=== PATIENT | male | born 1945 | race Caucasian/White ===

== ENCOUNTER 2020-02-24 09:10 | Outpatient (CLI) | payer MEDICARE, SELFPAY ==
[2020-02-24 09:30] LABS: Hemoglobin A1C 6.1 % (<5.7)
[2020-02-24 10:17] LABS: Alanine Aminotransferase 37 U/L (16-63); Alkaline Phosphatase 78 U/L (46-116); Anion Gap 8 mmol/L (8-16); Aspartate Amino Transferase 23 U/L (15-37); Bilirubin,Total 0.4 mg/dL (0.00-1.00); Blood Urea Nitrogen 23 mg/dL (7-18); Calcium 8.6 mg/dL (8.5-10.1); Carbon Dioxide 28 mmol/L (21-32); Chloride 103 mmol/L (98-108); Estimated Glomerular Filt Rate 46; Glucose 169 mg/dL (70-99); Osmolality Calculated 295 mOsm/kg (285-295); Potassium 4.2 mmol/L (3.5-5.1); Sodium 139 mmol/L (136-145)
[2020-02-24 10:22] LABS: Creatinine Urine 48.19 mg/dL (40-278); MALB Creatinine Ratio 27.8 mg/g (0-30); Microalbumin Urine Random 13.4 mg/L
== END 2020-02-24 09:11 | disposition home or self-care (01) ==
LOC: CHSLAB 09:12
PROVIDERS: PCP Family Medicine; Visit Provider Family Medicine
DX: E11.9 Type 2 diabetes mellitus without complications (principal)
CPT/HCPCS: 36415; 80053; 82043; 83036

== ENCOUNTER 2020-07-26 09:08 | Outpatient (CLI) | payer MEDICARE, SELFPAY ==
--- NOTE | ~2020-07-26 | XR_ITS ---
XR foot RT min 3V DATE: 07/26/2020 09:39 INDICATION: Right foot pain medially for 2 months. Diabetes. TECHNIQUE: 4 views COMPARISON: None FINDINGS: Prominent plantar and mild posterior calcaneal enthesopathy. There are severe neuropathic changes at the hindfoot including talonavicular, calcaneal cuboidal, tar jah and to a lesser extent tarsometatarsal joints. IMPRESSION: Severe neuropathic changes involving particularly the hindfoot Reviewed, dictated and finalized at location A. T ENGINEERING MANAGER
== END 2020-07-26 09:09 | disposition home or self-care (01) ==
PROVIDERS: PCP Family Medicine; Visit Provider Orthopaedic Surgery
DX: M79.671 Pain in right foot (principal)
CPT/HCPCS: 73630

== ENCOUNTER 2020-08-19 07:40 | Outpatient (CLI) | payer MEDICARE, SELFPAY ==
--- NOTE | ~2020-08-19 | CT_ITS ---
EXAMINATION: CT lung screening DATE: 08/19/2020 08:16 INDICATION: Z87.891 - Personal history of nicotine dependence hx tobacco dependence, no chest complai nts, hx emphysema TECHNIQUE: Computed tomography (CT) of the chest was performed without intravenous contrast. Addition al 3D reconstructions utilizing coronal maximum intensity projection (MIP) were performed. Automated exposure control and iterative reconstruction technique were employed. The dose-length product was 23 5.08 mGy-cm. COMPARISON: None FINDINGS: There are several small calcified nodules scattered throughout both lungs with lower lung predominanc e consistent with old granulomatous disease. No suspicious noncalcified pulmonary nodules, pneumonia or pleural effusion. Mild discoid atelectasis along with mild smooth septal line thickening consisten t with minimal pulmonary edema at the lung bases. Heart size is normal. Atherosclerotic coronary yana ry calcifications. No pericardial effusion. Aortic valve and mitral annular calcification. No patholo gically enlarged thoracic lymphadenopathy. No significant change in a 2.2 cm right adrenal mass which given the interval stability would be most consistent with an adenoma. Also unchanged is a 12 mm low -attenuation left adrenal adenoma. Chronic mild anterior wedging of a few mid and lower thoracic vert ebral bodies. Moderate thoracic and lower cervical spondylosis. IMPRESSION: 1. Lung-RADS category 1: Negative. Continue annual screening with noncontrast low-dose chest CT in 12 months. 2. Minimal pulmonary edema at the lung bases. Reviewed, dictated and finalized at location A. R OPERATOR TANKER TRUCK DRIVER IMPRESSION: 1. Lung-RADS category 1: Negative. Continue annual screening with noncontrast l ow-dose chest CT in 12 months. 2. Minimal pulmonary edema at the lung bases.
--- NOTE | ~2020-08-19 | US_ITS ---
EXAMINATION: US renal BI EXAM DATE: 08/19/2020 08:29 INDICATION: R10.9 - Unspecified abdominal pain TECHNIQUE: Multiple grayscale and Doppler images of the kidneys were obtained (by a technologist who performed the scan) and subsequently reviewed. There is no prior study for comparison. FINDINGS: Bilateral renal cortical thinning. Right kidney: There is normal contour and echogenicity. It measures 10.6 x 5.8 x 7.6 centimeters. T here are no focal renal lesions identified. There is no hydronephrosis. Left kidney: There is normal contour and echogenicity. It measures 9.7 x 5.6 x 6.8 centimeters. Ther e is a 6 mm renal cyst. There is no hydronephrosis. Bladder unremarkable. IMPRESSION: 1. Bilateral renal cortical thinning. 2. No hydronephrosis. Reviewed, dictated and finalized at location B. Y CHILDHOOD EDUCATION WORKER
[2020-08-19 08:10] LABS: Anion Gap 8 mmol/L (8-16); Blood Urea Nitrogen 25 mg/dL (7-18); Calcium 8.9 mg/dL (8.5-10.1); Carbon Dioxide 28 mmol/L (21-32); Chloride 102 mmol/L (98-108); Estimated Glomerular Filt Rate 57; Glucose 146 mg/dL (70-99); Osmolality Calculated 293 mOsm/kg (285-295); Sodium 138 mmol/L (136-145)
[2020-08-19 08:16] LABS: Hemoglobin A1C 6.3 % (<5.7)
== END 2020-08-19 07:41 | disposition home or self-care (01) ==
LOC: CHSIMG 07:43
PROVIDERS: PCP Family Medicine; Visit Provider Family Medicine
DX: Z12.2 Encounter for screening for malignant neoplasm of respiratory organs (principal); Z87.891 Personal history of nicotine dependence; E11.9 Type 2 diabetes mellitus without complications; R10.9 Unspecified abdominal pain; I12.9 Hypertensive chronic kidney disease with stage 1 through stage 4 chronic kidney disease, or unspecified chronic kidney disease; E78.5 Hyperlipidemia, unspecified; N18.9 Chronic kidney disease, unspecified; I25.10 Atherosclerotic heart disease of native coronary artery without angina pectoris; I48.91 Unspecified atrial fibrillation
CPT/HCPCS: 36415; 71271; 76775; 80048; 83036

== ENCOUNTER 2021-03-25 11:54 | Outpatient (CLI) | payer MEDICARE, SELFPAY ==
[2021-03-25 12:09] LABS: Basophils Absolute Auto 0.05 K/mm3 (0.00-0.10); Basophils Percent Auto 0.3 % (0.0-1.0); Eosinophils Absolute Auto 0.14 K/mm3 (0.02-0.50); Hematocrit 44.9 % (37.0-46.0); Hemoglobin 15.1 g/dL (12.4-15.3); Immature Granulocyte Absolute 0.06 K/mm3 (0.00-0.00); Immature Granulocyte Percent A 0.4 % (0.0-0.0); Lymphocytes Absolute Auto 5.56 K/mm3 (1.10-4.50); Lymphocytes Percent Auto 37.9 % (18.0-42.0); Mean Corpuscular HGB Conc 33.6 g/dL (32.0-36.0); Mean Corpuscular Hemoglobin 29.2 pg (27.0-31.0); Mean Corpuscular Volume 86.8 fL (78.0-102.0); Mean Platelet Volume 10.6 fl (8.7-11.0); Monocytes Absolute Auto 0.84 K/mm3 (0.10-0.90); Monocytes Percent Auto 5.7 % (2.0-11.0); Neutrophils Percent Auto 54.7 % (50.0-70.0); Platelet Count Result 162 K/mm3 (150-420); Red Blood Count 5.17 M/mm3 (4.70-6.10); Red Cell Distribution Width 14.7 % (11.6-14.4); White Blood Count 14.7 K/mm3 (4.8-10.8)
[2021-03-25 12:38] LABS: Hemoglobin A1C 6.2 % (<5.7)
[2021-03-25 12:50] LABS: Alanine Aminotransferase 49 U/L (16-63); Albumin Level 3.8 g/dL (3.4-5.0); Alkaline Phosphatase 70 U/L (46-116); Anion Gap 9 mmol/L (8-16); Aspartate Amino Transferase 24 U/L (15-37); Bilirubin,Total 0.3 mg/dL (0.00-1.00); Blood Urea Nitrogen 26 mg/dL (7-18); Calcium 8.9 mg/dL (8.5-10.1); Carbon Dioxide 29 mmol/L (21-32); Chloride 106 mmol/L (98-108); Cholesterol 138 mg/dL (0-200); Estimated Glomerular Filt Rate > 60; Glucose 80 mg/dL (70-99); HDL Direct 32 mg/dL (40-60); LDL Cholesterol Calculated 44 mg/dL (<130); Osmolality Calculated 301 mOsm/kg (285-295); Potassium 4.3 mmol/L (3.5-5.1); Sodium 144 mmol/L (136-145); Total Protein 6.6 g/dL (6.4-8.2); Triglycerides 311 mg/dL (0-150)
== END 2021-03-25 11:55 | disposition home or self-care (01) ==
PROVIDERS: PCP Family Medicine; Visit Provider Family Medicine
DX: I48.91 Unspecified atrial fibrillation (principal); E11.9 Type 2 diabetes mellitus without complications
CPT/HCPCS: 36415; 80053; 80061; 83036; 85025

== ENCOUNTER 2021-04-26 14:18 | Outpatient (CLI) | payer MEDICARE, SELFPAY ==
--- NOTE | ~2021-04-26 | XR_ITS ---
XR chest 2V DATE: 04/26/2021 14:48 INDICATION: Cough and shortness of breath TECHNIQUE: 2 views COMPARISON: August 22, 2018 two-view chest August 19, 2020 CT lung screening FINDINGS: Bilateral moderate hyperinflation. Normal heart size. No pulmonary infiltrate or consolidation, pleural effusion or pneumothorax. IMPRESSION: Bilateral moderate hyperinflation; no active cardiopulmonary disease Reviewed, dictated and finalized at location A. IMPRESSION: Bilateral moderate hyperinflation; no active cardiopulmonary diseas e
[2021-04-26 14:32] LABS: Mean Corpuscular HGB Conc 33.3 g/dL (32.0-36.0); Mean Corpuscular Hemoglobin 28.9 pg (27.0-31.0); Mean Corpuscular Volume 86.7 fL (78.0-102.0); Mean Platelet Volume 11.1 fl (8.7-11.0); Platelet Count Result 164 K/mm3 (150-420); Red Blood Count 5.19 M/mm3 (4.70-6.10); Red Cell Distribution Width 14.9 % (11.6-14.4); White Blood Count 17.5 K/mm3 (4.8-10.8)
[2021-04-26 15:36] LABS: Alanine Aminotransferase 47 U/L (16-63); Albumin Level 3.9 g/dL (3.4-5.0); Alkaline Phosphatase 78 U/L (46-116); Anion Gap 11 mmol/L (8-16); Aspartate Amino Transferase 19 U/L (15-37); Bilirubin,Total 1.1 mg/dL (0.00-1.00); Blood Urea Nitrogen 17 mg/dL (7-18); Calcium 8.7 mg/dL (8.5-10.1); Carbon Dioxide 30 mmol/L (21-32); Chloride 101 mmol/L (98-108); Estimated Glomerular Filt Rate 55; Glucose 74 mg/dL (70-99); NT Pro B Type Natriuretic Pept 895 pg/mL (0-450); Osmolality Calculated 294 mOsm/kg (285-295); Potassium 4.1 mmol/L (3.5-5.1); Sodium 142 mmol/L (136-145)
== END 2021-04-26 14:19 | disposition home or self-care (01) ==
PROVIDERS: PCP Family Medicine; Visit Provider Family Medicine
DX: I48.91 Unspecified atrial fibrillation (principal); R06.02 Shortness of breath
CPT/HCPCS: 36415; 71046; 80053; 83880; 85027

== ENCOUNTER 2021-06-08 13:51 | Outpatient (CLI) | payer MEDICARE, SELFPAY ==
--- NOTE | ~2021-06-08 | XR_ITS ---
EXAMINATION: XR finger 3rd RT min 2V DATE: 06/08/2021 14:15 INDICATION: Right hand third digit swelling. TECHNIQUE: 4 views of right hand third digit were obtained. COMPARISON: Right hand radiograph 02/13/2017 FINDINGS: There is flexion of fifth distal interphalangeal joint. No fracture. There is moderate oste oarthritis of third metacarpophalangeal joint and proximal interphalangeal joint and mild osteoarthri tis of distal interphalangeal joint. There is soft tissue swelling of the third digit. IMPRESSION: 1. Polyarticular osteoarthritis. Reviewed, dictated and finalized at location A. TAL STRATEGY SPECIALIST
--- NOTE | 2021-06-08 13:54 | ECG_ITS ---
Measurements Intervals Brady Rate: 150 P: -86 ID: 106 QRS: -55 QRSD: 119 T: 113 QT: 293 QTc: 463 Interpretive Statements ATRIAL FLUTTER/TACHYCARDIA WITH RAPID VENTRICULAR RESPONSE LEFT ANTERIOR FASCICULAR BLOCK ANTEROLATERAL INFARCT, AGE INDETERMINATE HIGH LATERAL INFARCT, AGE INDETERMINATE BASELINE WANDER- V3-V4, V6 ABNORMAL ECG Electronically Signed On 06-08-2021 14:07:31 AIRFRAME AND POWERPLANT TECHNICIAN by Sharan Jacinto D.O.
== END 2021-06-08 13:52 | disposition home or self-care (01) ==
LOC: CHSCARD 13:54
PROVIDERS: PCP Family Medicine; Visit Provider Family Medicine
DX: I48.91 Unspecified atrial fibrillation (principal); M79.89 Other specified soft tissue disorders
CPT/HCPCS: 73140; 93005

== ENCOUNTER 2021-06-08 15:07 | Emergency (ER) | payer MEDICARE, SELFPAY ==
[2021-06-08] VITALS (11 sets, daily range): BP systolic 93–151; BP diastolic 78–107; PULSE 132–154; RESP 20; TEMP 36.5–36.9; O2SAT 94
--- NOTE | ~2021-06-08 | XR_ITS ---
XR chest 1V portable 06/08/2021 16:15 Indication: Cough. History of COPD. Procedure: AP portable chest Comparison: Comparison to multiple prior studies sequentially, with oldest reviewed study dated 08/2015. Findings: Borderline heart size. Subtle bilateral airspace disease of the mid and lower lungs, suspic ious for pneumonia versus edema. No significant effusion or pneumothorax. Impression: 1: Subtle bilateral airspace disease of the mid and lower lungs which may represent pneumonia or renea a. Reviewed, dictated and finalized at location A. EXTINGUISHER TECHNICIAN Impression: 1: Subtle bilateral airspace disease of the mid and lower lungs which may repre sent pneumonia or edema.
[2021-06-08] MEDS: dilTIAZem HCl INJ 25 MG/5 ML VIAL (15:25)
--- NOTE | 2021-06-08 15:55 | PC.NURSE ---
[id number] CALL PUT OUT FOR ATTENDANT COIN OPERATED LAUNDRY DR NOE
[2021-06-08] MEDS: ADENOSINE IV SOLN 6 MG/2 ML VIAL (16:29)
[2021-06-08 16:35] LABS: Basophils Absolute Auto 0.05 K/mm3 (0.00-0.10); Basophils Percent Auto 0.3 % (0.0-1.0); Eosinophils Absolute Auto 0.09 K/mm3 (0.02-0.50); Eosinophils Percent Auto 0.6 % (1.0-6.0); Hematocrit 44.1 % (37.0-46.0); Immature Granulocyte Absolute 0.07 K/mm3 (0.00-0.00); Immature Granulocyte Percent A 0.5 % (0.0-0.0); Lymphocytes Absolute Auto 5.28 K/mm3 (1.10-4.50); Lymphocytes Percent Auto 36.7 % (18.0-42.0); Mean Corpuscular Hemoglobin 28.7 pg (27.0-31.0); Mean Corpuscular Volume 84.5 fL (78.0-102.0); Mean Platelet Volume 10.7 fl (8.7-11.0); Monocytes Absolute Auto 0.71 K/mm3 (0.10-0.90); Monocytes Percent Auto 4.9 % (2.0-11.0); Neutrophils Absolute Auto 8.2 K/mm3 (1.7-7.2); Platelet Count Result 171 K/mm3 (150-420); Red Blood Count 5.22 M/mm3 (4.70-6.10); Red Cell Distribution Width 14.4 % (11.6-14.4); White Blood Count 14.4 K/mm3 (4.8-10.8)
[2021-06-08 16:44] LABS: Potassium 3.5 mmol/L (3.5-5.1)
[2021-06-08 16:47] LABS: INR 1.1; Prothrombin Time 11.4 Seconds (9.50-12.10)
[2021-06-08 16:49] LABS: D Dimer 0.43 mg/L (0.19-0.50)
[2021-06-08] MEDS: ESMOLOL HCL 2,500 MG/250 ML 2,500 MG/250 ML BAG 27.75 MG IV CONT (16:58)
[2021-06-08 17:02] LABS: Alanine Aminotransferase 34 U/L (16-63); Albumin Level 3.8 g/dL (3.4-5.0); Alkaline Phosphatase 74 U/L (46-116); Anion Gap 11 mmol/L (8-16); Aspartate Amino Transferase 22 U/L (15-37); Bilirubin,Total 0.6 mg/dL (0.00-1.00); Blood Urea Nitrogen 20 mg/dL (7-18); Calcium 8.7 mg/dL (8.5-10.1); Carbon Dioxide 27 mmol/L (21-32); Chloride 102 mmol/L (98-108); Estimated CRCL calculation 45 ml/min; Estimated Glomerular Filt Rate 55; Glucose 115 mg/dL (70-99); Osmolality Calculated 293 mOsm/kg (285-295); Sodium 140 mmol/L (136-145); Total Protein 7.5 g/dL (6.4-8.2)
--- NOTE | 2021-06-08 17:03 | PC.NURSE ---
Lab called with Troponin of 284.4. Dr. Pepe notified.
--- NOTE | 2021-06-08 17:04 | PC.NURSE ---
Dr. Pepe spoke with [facility]'s popped corn oven attendant.
--- NOTE | 2021-06-08 17:07 | PC.NURSE ---
Spoke to Isabella at [facility] and they do not have any tele beds. States they will call us in the morning.
--- NOTE | 2021-06-08 17:11 | PC.NURSE ---
[facility] contacted for transfer by Dr. Pepe and they do not have any beds at this time.
--- NOTE | 2021-06-08 17:12 | PC.NURSE ---
[facility] contacted for transfer and they do not have any beds. Pt will be waitlisted.
[2021-06-08 17:14] LABS: Thyroid Stimulating Hormone 1.82 uIU/mL (0.36-3.74); Troponin I 284.4 ng/L (0.00-60.4)
--- NOTE | 2021-06-08 17:22 | ED.GENADULT ---
HPI - General Adult General Chief complaint: Unspecified Stated complaint: sent by MideoMeing to lower heart rate Source: patient Mode of arrival: ambulatory Limitations: no limitations History of Present Illness HPI narrative: Went to doc for mild cough and URI sxs. Was noted to have a rapid heart rate. Pt states that he had no idea that he was having rapid heart rate. He was not dizzy, not SOB, no pain at all. He had hx of this in the past, and had to be cardioverted several times. Pain Consistency: constant Relieving factors: none Exacerbating factors: none Associated symptoms: denies other symptoms Related Data Home Medications Medication Instructions Recorded Confirmed ipratropium 0.5 mg-albuterol 3 mg 3 ml INHALATION QID PRN 10/22/19 06/08/21 (2.5 mg base)/3 mL nebulization soln rivaroxaban 20 mg tablet 20 mg PO DAILY 10/22/19 06/08/21 umeclidinium 62.5 mcg/actuation 1 inhalation INHALATION DAILY 10/22/19 06/08/21 blister powder for inhalation hydralazine 50 mg tablet 100 mg PO BID tablet 08/18/20 06/08/21 lisinopril 40 mg tablet 40 mg PO DAILY 08/19/20 06/08/21 Allergies Allergy/AdvReac Type Severity Reaction Status Date / Time apixaban [From Eliquis] Allergy Intermediate Hives Verified 06/08/21 15:42 Review of Systems Constitutional: Constitutional: Reports as per HPI and Reports no additional constitutional complaints Eyes: Eyes: Reports no additional eye complaints ENT: Reports system reviewed and no additional complaints, except as documented Cardiovascular: Cardiovascular: Reports no additional cardiovascular complaints Comments: pt has no sxs Respiratory: Respiratory: Reports cough Comments: covid and influenza negative today Gastrointestinal: Gastrointestinal: Reports no additional gastrointestinal complaints Musculoskeletal: Musculoskeletal: Reports no additional musculoskeletal complaints Neurologic: Reports system reviewed and no additional complaints, except as documented Psychiatric: Psychiatric: Reports no additional psychiatric complaints Endocrine: Endocrine: Reports no additional endocrine complaints Hematologic/Lymphatic: Hematologic/Lymphatic: Reports no additional hematologic/lymphatic complaints Allergic/Immunologic: Allergic/Immunologic: Reports no additional allergic/immunologic complaints PMFSH Past Medical History Medical History Atrial fibrillation CAD (coronary artery disease) Charcot foot due to diabetes mellitus CKD (chronic kidney disease) Claustrophobia COPD (chronic obstructive pulmonary disease) DM2 (diabetes mellitus, type 2) History of adverse effect of anesthesia Hyperlipidemia Hypertension Left ventricular failure CONNER (obstructive sleep apnea) Overweight Peripheral neuropathy Wears glasses Surgical History Surgical History History of cardiac radiofrequency ablation History of coronary artery stent placement x3 History of umbilical hernia repair Hx of cataract surgery right eye Family History Family History Father CHF (congestive heart failure) CAD (coronary artery disease) Hypertension PVD (peripheral vascular disease) Cerebrovascular accident Mother Hypertension Hepatic carcinoma Daughter Hypertension Rheumatoid arthritis Brother COPD (chronic obstructive pulmonary disease) Alcoholism Other Heart disease Social History Social History Smoking packs per day: 2 Smoking cigarettes per day: 40.0 Smoking status: Former smoker Tobacco type: cigarettes Second hand tobacco smoke exposure: No Smoking end date: 06/25/98 Additional smoking assessment comments: 90 pack-year history Alcohol intake: former Substance use: never Substance use type: does no
--- NOTE | 2021-06-08 17:24 | PC.NURSE ---
Spoke to [facility] in [place] and they do not have any beds available.
--- NOTE | 2021-06-08 17:28 | PC.NURSE ---
[facility] called back from [facility] and they do not have any beds at this time. Dr. Hsu process automation engineer for cardiology. Will page to for Dr. Pepe to consult with.
--- NOTE | 2021-06-08 17:35 | PC.NURSE ---
Dr. Rm paged.
[2021-06-08] MEDS: AMIODARONE 150 MG/D5W 100 ML 150 MG/100 ML BAG 600 MG IV CONT (18:25)
[2021-06-08] MEDS: AMIODARONE 360 MG/D5W 200 ML 360 MG/200 ML BAG 33.33 MG (19:06)
--- NOTE | 2021-06-08 19:11 | PC.NURSE ---
[facility] did not have any beds available. Waitlisted.
--- NOTE | 2021-06-08 19:21 | PC.NURSE ---
Pat to Harshad at [facility] who will consult cardiology and try to find placement for patient.
[2021-06-08] MEDS: ACETAMINOPHEN 500 MG TABLET 1000 MG PO (20:07)
--- NOTE | 2021-06-08 20:22 | PC.NURSE ---
[facility], [place] [phone], Contacted for pt transfer, they do not have any available beds at this time.
--- NOTE | 2021-06-09 01:00 | PC.NURSE ---
pt being transferred to [facility]. report called MASSIEL Hirsch, accepting MD Cabrera.
[2021-06-09 01:35] VITALS: BP 122/92; PULSE 148; RESP 20; O2SAT 93
== END 2021-06-09 02:17 | disposition short-term general hospital (02) ==
PROVIDERS: Emergency Provider Emergency Medicine; PCP Family Medicine
DX: I48.92 Unspecified atrial flutter (principal); I25.10 Atherosclerotic heart disease of native coronary artery without angina pectoris; J44.9 Chronic obstructive pulmonary disease, unspecified; E11.9 Type 2 diabetes mellitus without complications; E78.5 Hyperlipidemia, unspecified; I10 Essential (primary) hypertension; Z87.891 Personal history of nicotine dependence
CPT/HCPCS: 36415; 71045; 73140; 80053; 83735; 84443; 84484; 85025; 85380; 85610; 93005; 96365; 96366; 96367; 96375; 99285; J0153; J0282

== ENCOUNTER 2021-08-31 09:57 | Outpatient (CLI) | payer MEDICARE, SELFPAY ==
--- NOTE | 2021-08-31 11:00 | NEURO_ITS ---
Impression: # Complains of pain and numbness of hands. # Bilateral Carpal Tunnel Syndrome, left more than right. # Right ulnar neuropathy around the elbow. # Needle/EMG exam neurogenic. Nerve Conduction Studies Anti Sensory Summary Table Stim Site NR Peak (ms) P-T Amp (?V) Site1 Site2 Delta-P (ms) Dist (cm) Francisco (m/s) Left Median Anti Sensory (2-3nd Digit) NO RESPONSE Wrist 7.6 24.7 Wrist 2-3nd Digit 7.6 14.0 18 Wrist NR Wrist 2-3nd Digit 7.6 14.0 18 Right Median Anti Sensory (2-3nd Digit) NO RESPONSE Wrist 3.7 22.2 Wrist 2-3nd Digit 3.7 14.0 38 Wrist NR Wrist 2-3nd Digit 3.7 14.0 38 Left Radial Anti Sensory Run #2 (Base 1st Digit) Wrist 2.9 1373.6 Wrist Base 1st Digit 2.9 0.0 Right Radial Anti Sensory (Base 1st Digit) Wrist 2.5 33.7 Wrist Base 1st Digit 2.5 0.0 Left Ulnar Anti Sensory (5th Digit) Right Ulnar Anti Sensory (5th Digit) NO RESPONSE Wrist NR Wrist 5th Digit 14.0 Motor Summary Table Stim Site NR Onset (ms) O-P Amp (mV) Site1 Site2 Delta-0 (ms) Dist (cm) Francisco (m/s) Left Median Motor (Abd Poll Brev) Wrist 5.4 1.7 Elbow Wrist 5.5 29.0 53 Elbow 10.9 2.0 Right Median Motor (Abd Poll Brev) Wrist 4.5 1.8 Elbow Wrist 6.0 31.0 52 Elbow 10.5 2.1 Left Ulnar Motor (Abd Dig Minimi) Wrist 3.4 4.5 A Elbow Wrist 6.8 33.0 49 A Elbow 10.2 1.9 Right Ulnar Motor (Abd Dig Minimi) Wrist 3.3 5.1 A Elbow Wrist 6.9 30.0 43 A Elbow 10.2 2.0 B Elbow Wrist 5.7 22.0 39 B Elbow 9.0 1.3 F Wave Studies NR F-Lat (ms) L-R F-Lat (ms) Left Median (Mrkrs) (Abd Poll Brev) 29.74 2.55 Right Median (Mrkrs) (Abd Poll Brev) 27.19 2.55 Left Ulnar (Mrkrs) (Abd Dig Min) 28.18 2.10 Right Ulnar (Mrkrs) (Abd Dig Min) 26.08 2.10 EMG Side Muscle Nerve Root Ins Act Fibs Amp Dur Recrt Comment Right 1stDorInt Ulnar C8-T1 Nml Nml Nml >12ms Reduced Right Ext Indicis Radial (Post Int) C7-8 Nml Nml Nml Nml Nml Right Ext Digitorum Radial (Post Int) C7-8 Nml Nml Nml Nml Nml Right BrachioRad Radial C5-6 Nml Nml Nml Nml Nml Right PronatorTeres Median C6-7 Nml Nml Nml Nml Nml Right Abd Poll Brev Median C8-T1 Nml Nml Nml >12ms Reduced Left 1stDorInt Ulnar C8-T1 Nml Nml Nml Nml Nml Left Ext Indicis Radial (Post Int) C7-8 Nml Nml Nml Nml Nml Left Ext Digitorum Radial (Post Int) C7-8 Nml Nml Nml Nml Nml Left BrachioRad Radial C5-6 Nml Nml Nml Nml Nml Left PronatorTeres Median C6-7 Nml Nml Nml Nml Nml Left Abd Poll Brev Median C8-T1 Nml Nml Nml >12ms Reduced MTDD
== END 2021-08-31 09:58 | disposition home or self-care (01) ==
LOC: ANHNEURO 09:59
PROVIDERS: PCP Family Medicine; Visit Provider Plastic Surgery
DX: R20.0 Anesthesia of skin (principal); R53.1 Weakness; G56.03 Carpal tunnel syndrome, bilateral upper limbs; G56.21 Lesion of ulnar nerve, right upper limb
CPT/HCPCS: 95886; 95911

== ENCOUNTER 2021-09-23 08:27 | Outpatient (CLI) | payer MEDICARE, SELFPAY ==
[2021-09-23 08:56] LABS: Anion Gap 9 mmol/L (8-16); Blood Urea Nitrogen 19 mg/dL (9-20); Calcium 8.8 mg/dL (8.4-10.2); Carbon Dioxide 28 mmol/L (22-30); Chloride 101 mmol/L (98-107); Estimated Glomerular Filt Rate > 60; Glucose 222 mg/dL (65-110); Potassium 3.8 mmol/L (3.4-5.0); Sodium 138 mmol/L (137-145)
== END 2021-09-23 08:28 | disposition home or self-care (01) ==
LOC: ANHSURGERY 08:31
PROVIDERS: Anesthesiology; PCP Family Medicine; Visit Provider Plastic Surgery
DX: Z01.812 Encounter for preprocedural laboratory examination (principal); E11.9 Type 2 diabetes mellitus without complications
CPT/HCPCS: 36415; 80048

== ENCOUNTER 2021-09-29 01:13 | Day surgery (SDC) | payer MEDICARE, SELFPAY ==
--- NOTE | 2021-09-19 11:34 | PC.NURSE ---
Report to the Outpatient Waiting Room, entrance under the green pavilion located off [facility], at time _0600 on date _09/29/21 . OR Time: 729 . - You and your visitor will be asked a series of questions to screen for COVID 19 for your protection. - A mask is required within the hospital. Preoperative COVID Testing Requirements: No COVID Test needed if: (proof is required; if not received patient will have Rapid Test prior to entry) - Patient has received COVID Vaccine at least 14 days prior to procedure date or - Patient has positive COVID test result within last 90 days of surgery date. COVID Test needed if above criteria is not met If not COVID vaccinated a COVID test must be conducted within 72 hours of surgery and patient is asked to isolate self from time of testing until procedure. You will go to the [facility] for your COVID testing. The [facility] [facility] is located at the corner of [address] [facility]. You will only be called if COVID results are positive and your surgeon may reschedule your elective surgery date. Patients may have clear liquids (water, carbonated beverages, clear teas, apple juice) until 3 hours prior to surgery with a maximum of 20 ounces. - No food from midnight until time of surgery - Infants may have breast milk until 4 hours before surgery, formula 6 hours prior to surgery. - Children will be allowed to drink immediately following surgery. If applicable, please bring a bottle or sippy cup to assist with drinking. Juice, water, soda, and popsicles are readily available. For infants on formula, please bring formula the day of surgery. Pacifiers are allowed. Take the following medications with a SIP of water the morning of surgery: __NEBULIZER AND _INCRUSE ELLIPTA INHALER Medications to discontinue per physician ___OK TO CONTINUE XARELTO JUST DO NOT TAKE MORNING OF SURGERY Date to take last dose Please no make-up, nail arabic, hairspray, perfume, deodorant, or body powder the day of surgery. No jewelry (including any body piercings) or valuables the day of surgery, leave them at home. Please take a shower or bath the night before, or the morning of, surgery with an antibacterial soap. Wear comfortable, loose fitting clothing. Children are encouraged to wear pajamas. - Jewelry must be removed prior to entering the operating room. Rings and piercings that are not removed may be cut off. - The hospital will not accept responsibility for valuables. - Please leave all valuables, including medications, at home the day of surgery. If you are going home after surgery, a licensed miniature train driver must drive you home. - NO public transportation without another adult. - We recommend that an adult stay with you for 24 hours following discharge. - We also recommend that you do not drive, make important decision, drink alcoholic beverages, or take any drugs that were not prescribed by your health care provider for at least 24 hours after your discharge time. For Pediatric surgeries, we recommend two adults accompany the child home (only one inside the building at this time). One visitor will be allowed to accompany the patient into the hospital. Patients visitor will be instructed to remain with patient at all times or leave the building. We will allow the visitor to come back to the postoperative area when patient is ready. Follow any additional instructions given to you from your surgeon. Telephone instructions given to _PATIENT AND JULIAN and asked if any additional questions and then verbalized understanding. Patient advised to call surgeon office or pre surgery nurse liaison [phone] if any additional questions.
[2021-09-19 11:38] VITALS: BMI 29.4
[2021-09-29] MEDS: LACTATED RINGERS 1,000 ML 30 ML IV CONT (06:28)
[2021-09-29 06:33] LABS: Glucose Point of Care 134 mg/dl (65-105)
--- NOTE | 2021-09-29 06:39 | WPDANESEPPF ---
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 Patient Data Age: 76 Gender: M Height: 1.78 m Weight: 92.99 kg Allergies Allergy/AdvReac Type Severity Reaction Status Date / Time apixaban [From Eliquis] Allergy Intermediate Hives Verified 09/29/21 06:43 metoprolol AdvReac Hives Verified 09/29/21 06:43 Home Medications Medication Instructions Recorded Confirmed Type ipratropium 0.5 mg-albuterol 3 mg 3 ml INHALATION QID PRN 10/22/19 09/29/21 History (2.5 mg base)/3 mL nebulization soln rivaroxaban 20 mg tablet 20 mg PO DAILY 10/22/19 09/29/21 History umeclidinium 62.5 mcg/actuation 1 inhalation INHALATION DAILY 10/22/19 09/29/21 History blister powder for inhalation hydralazine 50 mg tablet 100 mg PO BID tablet 08/18/20 09/29/21 History lisinopril 40 mg tablet 40 mg PO DAILY 08/19/20 09/29/21 History metformin 500 mg tablet See Rx Instructions .ROUTE 10/25/20 09/29/21 Rx .COMPLEX #180 tablet pravastatin 20 mg tablet See Rx Instructions .ROUTE 06/13/21 09/29/21 Rx .COMPLEX #90 tablet furosemide 40 mg tablet See Rx Instructions .ROUTE 07/25/21 09/29/21 Rx .COMPLEX #180 tablet pregabalin [Lyrica] 75 mg PO QPM 09/19/21 09/29/21 History Laboratory Tests 09/29/21 06:28 POC Capillary Glucose 134 mg/dl H mg/dl (65-105) Patient hx anesthesia problems: none Family hx anesthesia problems: none Results Review: All pre-operative results and documents have been reviewed as part of the pre-operative evaluation. [facility] Past Medical History Medical History Atrial fibrillation CAD (coronary artery disease) Charcot foot due to diabetes mellitus CKD (chronic kidney disease) Claustrophobia COPD (chronic obstructive pulmonary disease) DM2 (diabetes mellitus, type 2) History of adverse effect of anesthesia Hyperlipidemia Hypertension Left ventricular failure CONNER (obstructive sleep apnea) Overweight Peripheral neuropathy Wears glasses Surgical History Surgical History History of cardiac radiofrequency ablation History of coronary artery stent placement x3 History of umbilical hernia repair Hx of cataract surgery right eye Family History Family History Father CHF (congestive heart failure) CAD (coronary artery disease) Hypertension PVD (peripheral vascular disease) Cerebrovascular accident Mother Hypertension Hepatic carcinoma Daughter Hypertension Rheumatoid arthritis Brother COPD (chronic obstructive pulmonary disease) Alcoholism Other Heart disease Social History Social History Smoking packs per day: 2 Smoking cigarettes per day: 40.0 Years smoked: 32 Smoking pack-years: 64.00 Smoking status: Former smoker Tobacco type: cigarettes Second hand tobacco smoke exposure: No Smoking end date: 06/25/98 Additional smoking assessment comments: 90 pack-year history Alcohol intake: former Substance use: never Substance use type: does not use Living arrangements: with family Additional living arrangements comments: . Lives with . 2 adult children. 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 Currenty works for [employer] with [employer]. Gender identity (if verbalized by the patient): Female Spiritual care concerns: No Anes - Eval Final PreProcedure Day of Procedure 09/29/21 06:39 Patient weight: obese Heart: irregular rhythm Lungs: clear to auscultation Airway:
[2021-09-29 06:45] VITALS: BP 146/96; PULSE 109; RESP 20; TEMP 36.2; O2SAT 97
--- NOTE | 2021-09-29 07:12 | WPDHPUPDATE1 ---
History and Physical Update Update Date/Time: 09/29/21 07:12 History and Physical has been reviewed, including an updated exam of the patient. There are NO changes in the patient's condition. Risks, benefits, and alternatives have been discussed and questions answered. Patient agrees to proceed with procedure.
[2021-09-29] MEDS: LIDO 1%/EPINEPHRINE 1:100,000 50 ML VIAL 20 ML INFILTRATE (07:51)
[2021-09-29 08:40] VITALS: BP 147/88; PULSE 82; RESP 14; O2SAT 93
--- NOTE | 2021-09-29 08:44 | W.PM.PROC2 ---
Procedure Note - Detailed Date of Procedure 09/29/21 Pre-op Diagnosis rigth carpal and cubital syndrome Post-op Diagnosis Same Procedure Performed Right open carpal tunnel release and right ulnar neuroplasty at the elbow Surgeon Jesse Abdul MD Hydraulic Press In Operator Alfredo Anesthesia MAC Indications Significant neuropathy of both nerves confirmed by nerve conduction test and EMG. The patient has had previous right open carpal tunnel release the did not help his condition. Description of Procedure The cubital tunnel and carpal tunnel were marked on the patient in the holding area. He was then taken to the operating room where he was placed supine on the operating table. He was given some IV fentanyl and no propofol or other medication. A time-out was held and confirmed. The 2 sites were marked on the patient is extremity and infiltrated locally with 1% lidocaine with epinephrine. The extremity was prepped and draped usual fashion the extremity was exsanguinated with an Chetan wrap and the tourniquet inflated to 250 mmHg. Surgery was begun at the hand with the incision was made as marked and dissection was carried bluntly through the subcutaneous tissue to of scarred layers consistent with the palmar aponeurosis and the transverse retinaculum. This tissue was carefully explored of with a 15 blade opening the canal and revealing the median nerve. This was carefully dissected with scissors distally to completely release it and proximally. The incision was extended up the wrist in zigzag fashion proximally to inches. Median nerve at that level was thought to be the normal the median nerve in the area of the prior retinaculum seemed pale the the seemed to be less vasculature. The wound there was closed with the running 4-0 nylon. The elbow was flexed and supported on folded towels. The incision was made over the elbow and dissected down to the medial epicondyle. The nerve was determined to be just posterior to that and was located cephalad to that. At that point was dissected distally passing under thick Lai's ligament. There appeared to be no compression on the nerve at the level of the flexor aponeurosis. The nerve did not sublux. The nerve appeared to be in good condition. Bleeding points were electrocoagulated. The wound was closed in interrupted fashion with 3-0 intradermal Monocryl suture multiple sites. The skin was then closed with glue. Bulky bandages were applied with Chetan wraps both sites and the patient was discharged to the operating room stable condition. The patient is discharged with a prescription for hydrocodone . Estimated Blood Loss 1 Drains No Packing No Pathology None sent Complications No immediate complications Condition Stable Disposition Same day
[2021-09-29 08:54] LABS: Glucose Point of Care 150 mg/dl (65-105)
[2021-09-29 09:00] VITALS: BP 154/88; PULSE 95; RESP 16
== END 2021-09-29 09:12 | disposition home or self-care (01) ==
PROVIDERS: PCP Family Medicine; Visit Provider Plastic Surgery
PROC: (CPT 64721; principal; 2021-09-29 07:30)
PROC: (CPT 64721; 2021-09-29 07:30)
DX: G56.01 Carpal tunnel syndrome, right upper limb (principal); G56.21 Lesion of ulnar nerve, right upper limb; Z79.01 Long term (current) use of anticoagulants; Z79.84 Long term (current) use of oral hypoglycemic drugs; I48.91 Unspecified atrial fibrillation; I25.10 Atherosclerotic heart disease of native coronary artery without angina pectoris; I12.9 Hypertensive chronic kidney disease with stage 1 through stage 4 chronic kidney disease, or unspecified chronic kidney disease; E11.22 Type 2 diabetes mellitus with diabetic chronic kidney disease; N18.9 Chronic kidney disease, unspecified; G47.33 Obstructive sleep apnea (adult) (pediatric); E78.5 Hyperlipidemia, unspecified; G62.9 Polyneuropathy, unspecified; Z87.891 Personal history of nicotine dependence
CPT/HCPCS: 64721; 64718; 82948; A9270; J2250; J2405; J3010; J7120

== ENCOUNTER 2021-12-29 09:46 | Outpatient (CLI) | payer MEDICARE, SELFPAY ==
[2021-12-29 10:41] LABS: SARS-CoV-2 RNA PCR Positive (Negative)
== END 2021-12-29 09:47 | disposition home or self-care (01) ==
LOC: CHSLAB 09:48
PROVIDERS: PCP Family Medicine; Visit Provider Family Medicine
DX: U07.1 COVID-19 (principal)
CPT/HCPCS: C9803; U0003; U0005

== ENCOUNTER 2022-12-07 07:58 | Outpatient (CLI) | payer MEDICARE, SELFPAY ==
[2022-12-07 08:12] LABS: Basophils Absolute Auto 0.06 K/mm3 (0.00-0.10); Basophils Percent Auto 0.3 % (0.0-1.0); Eosinophils Absolute Auto 0.09 K/mm3 (0.02-0.50); Eosinophils Percent Auto 0.5 % (1.0-6.0); Hematocrit 44.5 % (37.0-46.0); Hemoglobin 14.7 g/dL (12.4-15.3); Immature Granulocyte Absolute 0.11 K/mm3 (0.00-0.00); Immature Granulocyte Percent A 0.6 % (0.0-0.0); Lymphocytes Absolute Auto 8.86 K/mm3 (1.10-4.50); Lymphocytes Percent Auto 51.7 % (18.0-42.0); Mean Corpuscular Hemoglobin 29.9 pg (27.0-31.0); Mean Corpuscular Volume 90.6 fL (78.0-102.0); Mean Platelet Volume 10.4 fl (8.7-11.0); Monocytes Absolute Auto 0.48 K/mm3 (0.10-0.90); Monocytes Percent Auto 2.8 % (2.0-11.0); Neutrophils Absolute Auto 7.6 K/mm3 (1.7-7.2); Neutrophils Percent Auto 44.1 % (50.0-70.0); Platelet Count Result 169 K/mm3 (150-420); Red Blood Count 4.91 M/mm3 (4.70-6.10); Red Cell Distribution Width 14.3 % (11.6-14.4); White Blood Count 17.2 K/mm3 (4.8-10.8)
[2022-12-07 08:53] LABS: Alanine Aminotransferase 58 U/L (16-63); Albumin Level 3.7 g/dL (3.4-5.0); Alkaline Phosphatase 70 U/L (46-116); Anion Gap 9 mmol/L (8-16); Aspartate Amino Transferase 29 U/L (15-37); Bilirubin,Total 0.4 mg/dL (0.00-1.00); Blood Urea Nitrogen 25 mg/dL (7-18); Calcium 8.8 mg/dL (8.5-10.1); Carbon Dioxide 31 mmol/L (21-32); Chloride 102 mmol/L (98-108); Estimated Glomerular Filt Rate 57; Glucose 167 mg/dL (70-99); Osmolality Calculated 302 mOsm/kg (285-295); Potassium 3.9 mmol/L (3.5-5.1); Sodium 142 mmol/L (136-145); Total Protein 6.7 g/dL (6.4-8.2)
== END 2022-12-07 07:59 | disposition home or self-care (01) ==
LOC: CHSLAB 07:59
PROVIDERS: PCP Family Medicine; Visit Provider Family Medicine
DX: I48.91 Unspecified atrial fibrillation (principal)
CPT/HCPCS: 36415; 80053; 85025

== ENCOUNTER 2023-07-03 15:58 | Emergency (ER) | payer MEDICARE, SELFPAY ==
[2023-07-03] VITALS (29 sets, daily range): BP systolic 135–170; BP diastolic 79–92; PULSE 70–93; RESP 14–22; TEMP 36.2; O2SAT 90–100
--- NOTE | ~2023-07-03 | XR_ITS ---
EXAMINATION: XR chest 2V Exam Date/Time: 07/03/2023 20:06 [facility] [employer] HISTORY: dizziness Comparison: 06/08/2021. RESULT: Lines, tubes, and devices: Left chest pacer with intact leads. Lungs and pleura: Mild diffuse reticular opacities with cuffing. Cardiomediastinal silhouette: Stable. Other: No acute osseous or upper abdominal finding. IMPRESSION: Mild interstitial edema. Reviewed, dictated and finalized at location [facility] [employer] IMPRESSION: Mild interstitial edema.
--- NOTE | 2023-07-03 16:17 | ECG_ITS ---
Measurements Intervals [place] Rate: 85 P: -75 NC: 340 QRS: -58 QRSD: 140 T: 112 QT: 406 QTc: 484 Interpretive Statements ELECTRONIC ATRIAL PACEMAKER ELECTRONIC VENTRICULAR PACEMAKER NO FURTHER INTERPRETATION IS POSSIBLE ATYPICAL ECG COMPARED TO ECG 06/08/2021 14:04:58 ELECTRONIC ATRIAL VENTRICULAR PACEMAKER NOW PRESENT Electronically Signed On 07-03-2023 17:18:01 ELEMENTARY EDUCATOR by Sharan Jacinto D.O.
--- NOTE | 2023-07-03 16:19 | ED.DIZZY ---
HPI - Dizziness General Chief Complaint: Dizziness Stated Complaint: dizziness Time Seen by Provider: 07/03/23 16:16 Source: patient Mode of arrival: ambulatory Limitations: no limitations History of Present Illness HPI Narrative: Patient is a 78yo M with dizziness while working on his car today. He has prior AFib with ablations. He has a prior negative heart cath 10 years ago. No CP or SOB. MD elicited complaint: dizziness Onset (ago): day(s) (1) Timing: sudden onset Severity: moderate Description: sense of movement, lightheadedness and off-balance History of similar symptoms: No Exacerbating factors: movement/ambulation and change in body position (was working on his car and this happened) Relieving factors: nothing and other (self resolving) Associated symptoms: nausea (resolved) Related Data Home Medications Medication Instructions Recorded Confirmed ipratropium 0.5 mg-albuterol 3 mg 3 ml inhalation QID PRN Dyspnea 10/22/19 07/03/23 (2.5 mg base)/3 mL nebulization soln rivaroxaban 20 mg tablet (Xarelto) 20 mg PO DAILY 10/22/19 07/03/23 Vitamin B-12 500 mg DAILY 07/03/23 07/03/23 diltiazem HCl 240 mg 240 mg PO BID 07/03/23 07/03/23 capsule,extended release 24 hr furosemide 40 mg tablet 40 mg PO BID 07/03/23 07/03/23 losartan 100 mg tablet 100 mg DAILY 07/03/23 07/03/23 metformin 500 mg tablet 500 mg BID 07/03/23 07/03/23 nebivolol 5 mg BID 07/03/23 07/03/23 potassium 99 mg DAILY 07/03/23 07/03/23 pravastatin 20 mg tablet 20 mg DAILY 07/03/23 07/03/23 Allergies Allergy/AdvReac Type Severity Reaction Status Date / Time apixaban [From Eliquis] Allergy Intermediate Hives Verified 07/03/23 16:02 metoprolol AdvReac Hives Verified 07/03/23 16:02 Review of Systems Review of Systems: All systems reviewed & are unremarkable except as noted in HPI and below Constitutional: Constitutional: Reports no additional constitutional complaints Eyes: Eyes: Reports no additional eye complaints ENT: Reports system reviewed and no additional complaints, except as documented Cardiovascular: Cardiovascular: Reports no additional cardiovascular complaints Respiratory: Respiratory: Reports no additional respiratory complaints Gastrointestinal: Gastrointestinal: Reports no additional gastrointestinal complaints Genitourinary: Genitourinary: Reports no additional male genitourinary complaints Musculoskeletal: Musculoskeletal: Reports no additional musculoskeletal complaints Integumentary/Breasts: Skin/Breast: Reports system reviewed and no additional complaints, except as docu Neurologic: Reports system reviewed and no additional complaints, except as documented Psychiatric: Psychiatric: Reports no additional psychiatric complaints Endocrine: Endocrine: Reports no additional endocrine complaints Hematologic/Lymphatic: Hematologic/Lymphatic: Reports no additional hematologic/lymphatic complaints Allergic/Immunologic: Allergic/Immunologic: Reports no additional allergic/immunologic complaints [facility] Past Medical History Medical History Atrial fibrillation CAD (coronary artery disease) Charcot foot due to diabetes mellitus CKD (chronic kidney disease) Claustrophobia COPD (chronic obstructive pulmonary disease) DM2 (diabetes mellitus, type 2) History of adverse effect of anesthesia Hyperlipidemia Hypertension Left ventricular failure CONNER (obstructive sleep apnea) Overweight Peripheral neuropathy Wears glasses Surgical History Surgical History History of cardiac radiofrequency ablation History of coronary artery stent placement x3 History of umbilical hernia repair Hx of cataract surgery right eye Family History Family History Father CHF (congestive heart failure) CAD (coronary artery disease) Hypertension PVD (peripheral vascula
[2023-07-03 16:41] LABS: Basophils Absolute Auto 0.06 K/mm3 (0.00-0.10); Basophils Percent Auto 0.3 % (0.0-1.0); Eosinophils Absolute Auto 0.09 K/mm3 (0.02-0.50); Eosinophils Percent Auto 0.5 % (1.0-6.0); Hematocrit 45.9 % (37.0-46.0); Immature Granulocyte Absolute 0.07 K/mm3 (0.00-0.00); Immature Granulocyte Percent A 0.4 % (0.0-0.0); Lymphocytes Absolute Auto 9.34 K/mm3 (1.10-4.50); Lymphocytes Percent Auto 50.5 % (18.0-42.0); Mean Corpuscular HGB Conc 32.7 g/dL (32.0-36.0); Mean Corpuscular Volume 88.6 fL (78.0-102.0); Mean Platelet Volume 10.4 fl (8.7-11.0); Monocytes Absolute Auto 0.63 K/mm3 (0.10-0.90); Monocytes Percent Auto 3.4 % (2.0-11.0); Neutrophils Absolute Auto 8.3 K/mm3 (1.7-7.2); Neutrophils Percent Auto 44.9 % (50.0-70.0); Platelet Count Result 148 K/mm3 (150-420); Red Blood Count 5.18 M/mm3 (4.70-6.10); Red Cell Distribution Width 14.9 % (11.6-14.4); White Blood Count 18.5 K/mm3 (4.8-10.8)
--- NOTE | 2023-07-03 16:50 | PC.NURSE ---
EKG had critical reading. EKG reviewed by Dr. Okeefe, who compared current results with an old EKG and states that there was no change. No new orders at this time.
[2023-07-03 16:57] LABS: Alanine Aminotransferase 56 U/L (16-63); Albumin Level 3.7 g/dL (3.4-5.0); Alkaline Phosphatase 77 U/L (46-116); Aspartate Amino Transferase 27 U/L (15-37); Bilirubin,Total 0.3 mg/dL (0.00-1.00); Blood Urea Nitrogen 25 mg/dL (7-18); Calcium 9.1 mg/dL (8.5-10.1); Carbon Dioxide 31 mmol/L (21-32); Estimated Glomerular Filt Rate 50; Glucose 126 mg/dL (70-99); Total Protein 7.3 g/dL (6.4-8.2)
[2023-07-03 17:12] LABS: Anion Gap 7 mmol/L (8-16); Chloride 102 mmol/L (98-108); Osmolality Calculated 296 mOsm/kg (285-295); Sodium 140 mmol/L (136-145)
[2023-07-03 17:18] LABS: SARS-CoV-2 RNA PCR Negative (Negative)
[2023-07-03 17:23] LABS: Influenza A QL RT-PCR Negative (Negative); Influenza B QL RT-PCR Negative (Negative); RSV RNA, RT-PCR Negative (Negative)
[2023-07-03 17:28] LABS: Troponin I 216.5 ng/L (0.00-60.4)
--- NOTE | 2023-07-03 17:38 | PC.NURSE ---
Currently, Pt states all symptoms have resolved and he is back to normal . Pt aware of elevated troponin, denies any Hx of AK. Pt states that he has a pacemaker due to a-fib.
[2023-07-03] MEDS: ASPIRIN 81 MG CHEWABLE TABLET 324 MG PO (17:55)
--- NOTE | 2023-07-03 18:57 | PC.NURSE ---
Pt and family updated about plan of care. Agreeable to transfer to [facility].
[2023-07-03] MEDS: dilTIAZem HCL CD 240 MG CAP.24HR PO (23:34)
[2023-07-03] MEDS: PRAVASTATIN SODIUM 20 MG TABLET PO (23:34)
[2023-07-03] MEDS: metFORMIN HCL 500 MG TABLET PO (23:34)
[2023-07-03] MEDS: MECLIZINE HCL 12.5 MG TABLET PO (23:34)
[2023-07-03] MEDS: RIVAROXABAN 10 MG TABLET 20 MG PO (23:34)
[2023-07-03] MEDS: PREGABALIN (*CRX) 100 MG CAPSULE 150 MG PO (23:35)
[2023-07-03] MEDS: LOSARTAN POTASSIUM 50 MG TABLET 100 MG PO (23:35)
[2023-07-04] VITALS (55 sets, daily range): BP systolic 142–159; BP diastolic 80–89; PULSE 70–90; RESP 14–25; TEMP 37.1–37.2; O2SAT 84–100
[2023-07-04 06:45] LABS: Hematocrit 42.7 % (37.0-46.0); Mean Corpuscular HGB Conc 32.8 g/dL (32.0-36.0); Mean Corpuscular Volume 88.6 fL (78.0-102.0); Mean Platelet Volume 10.8 fl (8.7-11.0); Platelet Count Result 138 K/mm3 (150-420); Red Blood Count 4.82 M/mm3 (4.70-6.10)
[2023-07-04 06:57] LABS: INR 1.3; Partial Thromboplastin Time 42.4 SEC (23.90-30.70); Prothrombin Time 13.9 Seconds (9.50-12.10)
[2023-07-04 07:02] LABS: Anion Gap 8 mmol/L (8-16); Blood Urea Nitrogen 24 mg/dL (7-18); Calcium 8.4 mg/dL (8.5-10.1); Carbon Dioxide 29 mmol/L (21-32); Chloride 105 mmol/L (98-108); Estimated Glomerular Filt Rate 58; Glucose 118 mg/dL (70-99); Osmolality Calculated 299 mOsm/kg (285-295); Potassium 3.9 mmol/L (3.5-5.1); Sodium 142 mmol/L (136-145)
[2023-07-04 07:05] LABS: Band Neutrophils Percent 0 % (0-6); Basophils Percent Manual 0 % (0-1); Eosinophils Absolute Manual 0.16 K/mm3 (0.02-0.5); Eosinophils Percent Manual 1 % (1-6); Lymphocytes Percent Manual 50 % (18-44); Monocytes Absolute Manual 0.96 K/mm3 (0.1-0.90); Monocytes Percent Manual 6 % (3-9); Neutrophils Absolute Manual 6.88 K/mm3 (1.3-6.7); Neutrophils Percent Manual 43 % (46-73); Platelet Estimate Adequate (Adequate); Total Cells Counted 100
[2023-07-04 07:06] LABS: Troponin I 211.2 ng/L (0.00-60.4)
--- NOTE | 2023-07-04 07:37 | PC.NURSE ---
0700 report from donya devlin. resumed care of patient. introduced self to pt. pt complaint of continued dizziness with movement or ambulation. instructed pt to ring ruby for assistance to bathroom , increased fall prevention. pt voiced understanding. dr lyons notified of continued dizziness. [facility] diet order placed for pt.
--- NOTE | 2023-07-04 08:23 | PC.NURSE ---
dr lyons in with pt. pt continues to want to wait for placement at [facility]
--- NOTE | 2023-07-04 09:40 | PC.NURSE ---
PT ATE 100 % OF BREAKFAST. RESTING PER BED. AT BEDSIDE. AWAITING BED PLACEMENT AT [facility]. CALL WEI IN REACH. ENCOURAGED TO CALL FOR ASSISTANCE FOR GOING TO BATHROOM
--- NOTE | 2023-07-04 10:05 | PC.NURSE ---
pt up to bathroom, states only dizzy from laying to sitting position.
--- NOTE | 2023-07-04 11:46 | PC.NURSE ---
attempted call to rudy to give report. awaiting return call. pt aware bed available. information given to .
--- NOTE | 2023-07-04 12:43 | PC.NURSE ---
pt up and to bathroom prior to departure. ambulated to ems cot. report and all questions answered from tong. pt alert , oriented x4, denies chest pain, denies dizziness at this time.
[2023-07-04 19:50] LABS: Glucose Point of Care 122 mg/dl (65-105)
== END 2023-07-04 12:48 | disposition short-term general hospital (02) ==
PROVIDERS: Emergency Medicine; Emergency Provider Family Medicine; PCP Family Medicine
DX: C91.10 Chronic lymphocytic leukemia of B-cell type not having achieved remission (principal); R79.89 Other specified abnormal findings of blood chemistry; R42 Dizziness and giddiness; I48.91 Unspecified atrial fibrillation; I25.10 Atherosclerotic heart disease of native coronary artery without angina pectoris; J44.9 Chronic obstructive pulmonary disease, unspecified; E78.5 Hyperlipidemia, unspecified; I12.9 Hypertensive chronic kidney disease with stage 1 through stage 4 chronic kidney disease, or unspecified chronic kidney disease; E11.22 Type 2 diabetes mellitus with diabetic chronic kidney disease; N18.9 Chronic kidney disease, unspecified; Z79.899 Other long term (current) drug therapy; Z79.01 Long term (current) use of anticoagulants; Z79.84 Long term (current) use of oral hypoglycemic drugs; Z87.891 Personal history of nicotine dependence
CPT/HCPCS: 36415; 71046; 80048; 80053; 82948; 84484; 85025; 85610; 85730; 87637; 93005; 99285; A9270

== ENCOUNTER 2023-08-09 12:22 | Outpatient (CLI) | payer MEDICARE, SELFPAY ==
[2023-08-09 13:48] LABS: HIV 1 P24 AG Negative (Negative); HIV 1/2 AB Negative (Negative)
== END 2023-08-09 12:23 | disposition home or self-care (01) ==
LOC: CHSLAB 12:25
PROVIDERS: PCP Family Medicine
DX: B07.8 Other viral warts (principal)
CPT/HCPCS: 36415; 87806

== ENCOUNTER 2024-07-25 14:17 | Outpatient (CLI) | payer MEDICARE, SELFPAY ==
--- OUTSIDE RECORDS SUMMARY | 2024-07-25 14:26 | XMS_ITS | Encounter Summary ---
Author Organization [facility] Facility Care Team Providers Care Boiler Operator Name Role Phone Shubham Duarte DO Primary Care Provider Bala Pride MD Unavailable [phone] Bala Pride MD Unavailable [phone] Encounter Details Date Type Department Care Team (Latest Contact Info) Description 06/28/2016 Orders Only [facility] CLINCON[facility] ProviderJeremiah MD [address] [place] [address] Social History Tobacco Use Types Packs/Day Years Used Date Smoking Tobacco: Never Assessed Sex and Gender Information Value Date Recorded Sex Assigned at Not on file Legal Sex Male 8:18 AM CDT Gender Identity Not on file Sexual Orientation Not on file documented as of this encounter Plan of Treatment Not on file documented as of this encounter Procedures Procedure Name Priority Date/Time Associated Diagnosis Comments PROCEDURE - RESULT 06/28/2016 12 :00 AM FIXED INCOME DIRECTOR documented in this encounter Results * PROCEDURE - RESULT (06/28/2016 12:00 AM FIXED INCOME DIRECTOR) Narrative 06/28/2016 12:00 AM FIXED INCOME DIRECTOR Ordered by an unspecified provider. Historical Provider Final Res ult documented in this encounter Visit Diagnoses Not on filedocumented in this encounter Care Teams Boiler Operator Relationship Specialty Start Date End Date Shubham Duarte DO [address] [place] [address] PCP - General Family Medicine 06/09/21 Bala Pride MD [address] [place] [address] Medical Oncologist/Track Repairer Hematology and Oncology 07/04/22 11/14/22 Bala Pride MD [address] [place] [address] Medical Oncologist/Track Repairer Hematology and Oncology 11/15/22 documented as of this encounter
--- OUTSIDE RECORDS SUMMARY | 2024-07-25 14:26 | XMS_ITS | Encounter Summary ---
Author Organization [facility] Address [address] [place] [address] Care Team Providers Care Neurodiagnostic Technician Name Role Phone LaloAlva mezafrancisco RAO Primary Care Provider [phone] Encounter Details Date Type Department Care Team (Late st Contact Info) Description 01/16/2023 Lab Requisition [facility] - DermPath Lab [address] [place] [id number] Elisa Robert, PA-C [address] [place] [address] Neoplasm of uncertain behavior of skin Social History Tobacco Use Types Packs/Day Years Used Date Smoking Tobacco: Never Assessed Sex and Gender Information Value Date Recorded Sex Assigned at Not on file Gender Identity Not on file Sexual Orientation Not on file documented as of this encounter Plan of Treatment Not on file documented as of this encounter Procedures Procedure Name Priority Date/Time Associated Diagnosis Comments DERMATOPATHOLOGY Routine 01/15/2023 12:0 0 AM CDT Neoplasm of uncertain behavior of skin documented in this encounter Results * DERMATOPATHOLOGY (01/15/2023 12:00 AM CDT) Case Report Dermatopathology Report ? Case: [id number] ? Authorizing Provider: ??Elisa Robert PA-C ? Collected: ? 01/15/2023 12:00 AM ? Ordering Location: ? [facility] DermPath Lab ? Received: ?01/17/2023 02:17 PM ? Pathologist: ? Marychuy Laboy MD ? Specimens: ?? A) - Skin, left hand, second digit ? B) - Skin, left hand, bottom of 5th digit ? C) - Skin, left hand, top of 5th digit ? 3 4:05 PM [facility] DERMATOPATHOLOGY LABORATORY Final Diagnosis Specimen A. SKIN, left hand, second digit: VERRUCA VULGARIS (B07.8) Specimen B. SKIN, left hand, bottom of 5th digit: VERRUCA VULGARIS, SUPERFICIAL PORTIONS OF (B07.8) Specimen C. SKIN, left hand, top of 5th digit: VERRUCA VULGARIS (B07.8) 3 4:05 PM [facility] DERMATOPATHOLOGY LABORATORY Clinical History A: Verruca Vulgaris B-C: Verruca Vulgaris vs. Wart 3 4:05 PM [facility] DERMATOPATHOLOGY LABORATORY Gross Description Specimen A: Received is one formalin filled container labeled with the patient's name and designated left hand, second digit. The specimen consists of two (2) pieces of a shave biopsy measuring 9x7x1, 07c29y6 mm. Jar 0. Specimen B: Received is one formalin filled container labeled with the patient's name and designated left hand, bottom of 5th digit. The specimen consists of a shave biopsy measuring 12x8x3 mm. Jar 0. Specimen C: Received is one formalin filled container labeled with the patient's name and designated left hand, top of 5th digit. The specimen consists of a shave biopsy measuring 8x11x4 mm. Jar 0. 3 4:05 PM [facility] DERMATOPATHOLOGY LABORATORY Microscopic Description Specimen A. SKIN, left hand, second digit: There is digitated epidermal hyperplasia, hypergranulosis, vacuolated granular layer cells, and compact hyperorthokeratosis . Specimen B. SKIN, left hand, bottom of 5th digit: Sections show papillomatosis and hypergranulosis with overlying focal parakeratosis. The base of the lesion is not visualized. Specimen C. SKIN, left hand, top of 5th digit: There is digitated epidermal hyperplasia, hypergranulosis, vacuolated granular layer cells, and compact hyperorthokeratosis . 3 4:05 PM [facility] DERMATOPATHOLOGY LABORATORY Disclaimer An external and internal positive and negative controls are appropriate for the histochemical, immunohistochemical and immunofluorescence stain(s) in this case (if any), except where stated explicitly. The performance characteristics of the stain(s) cited in this report were developed and its performance characteristic determined by the Dermatopathology Laboratory at [facility], directed by Dr. Jeremiah Hatch. These tests need not be, and therefore are not, approved by the [place] Food and Drug Administration. The tests are used for clinical purposes. Billing Codes Specimen Charges Stain Charges 16478 [id number] 1 1 1 3 4:05 PM [facility] DERMATOPATHOLOGY LABORATORY Embedded Images 3 4:05 PM [facility] DERMATOPATHOLOGY LABORATORY Pathology/Cytology TISSUE SPECIMEN FROM SKIN / Unknown 01/15/2023 01/17/2023 2:17 PM CDT Miscellaneous samples (specimen) TISSUE SPECIMEN FROM SKIN / Unknown 01/15/2023 01/17/2023 2:17 PM CDT Miscellaneous samples (specimen) TISSUE SPECIMEN FROM SKIN / Unknown 01/15/2023 01/17/2023 2:17 PM CDT Elisa Robert PA-C LAB - PATHOLOGY/CYTO LOGY ORDERABLES Performing Organization Address City/State/[facility] Co de Phone Number DERMATOPATHOLOGY LABORATORY [facility] - Department of Dermatology [facility] [address] [place] [address], [address] [phone] documented in this encounter Visit Diagnoses Diagnosis Neoplasm of uncertain behavior of skin documented in this encounter Care Teams Neurodiagnostic Technician Relationship Specialty Start Date End Date Shubham Duarte DO [address] [place] [id number] PCP - General Family Medicine 12/06/23 documented as of this encounter
--- OUTSIDE RECORDS SUMMARY | 2024-07-25 14:26 | XMS_ITS ---
Author Organization [facility] Address [address] [place] [address]. [place], [place] [address] [place] [address] Care Team Providers Care Composition Roll Maker And Cutter Name Role Phone Shubham Duarte DO Primary Care Provider [phone] Active Problems Problem Noted Date Diagnosed Date Encounter for peripherally inserted central cath eter flush 11/02/2023 Diabetic foot infection ([facility]) 2023 Chronic lymphocytic leukemia ([facility]) 1 08/08/2021 Hypertension 11/08/2013 Overview (10/29/2023): HYPERTENSION NOS Pure hypercholesterolemia 11/08/2013 Overview (10/29/2023): PURE HYPERCHOLESTEROLEM Type 2 diabetes mellitus ([facility]) 11/08 Overview (10/29/2023): DMII WO CMP UNCNTRLD Current Oncology Plans No current plan information found. Past Plans Radiation Treatments * No radiation treatments are documented for this patient in [facility]. Treatments may have been administered in another system.
--- OUTSIDE RECORDS SUMMARY | 2024-07-25 14:26 | XMS_ITS | Patient Health Summary ---
Author Organization [facility] Address [address] [place] [address] Care Team Providers Care Home Restoration Service Cleaner Name Role Phone LaloShubham meza Primary Care Provider [phone] Note from [facility],non-owned Affiliates and Associated Physician Practices is amultiple site organization consisting of ambulatory clinics and hospital sitesin [place], [place], [place]. This disclosure is being madepursuant to the Care Everywhere program and may not contain all information available regarding this patient. Last updated 18.[facility] [employer] Allergies * Apixaban(Itching,Other) -Low Criticality Social History Tobacco Use Types Packs/Day Years Used Date Smoking Tobacco: Never Assessed Sex and Gender Information Value Date Recorded Sex Assigned at Not on file Gender Identity Not on file Sexual Orientation Not on file Procedures * XR ANKLE RIGHT 3VW OR MORE(Performed 12/06/2023) Performed for Orthopedic aftercare * XR FOOT RIGHT WT BEARING 3VW(Performed 12/06/2023) Performed for Orthopedic aftercare * DERMATOPATHOLOGY(Performed 01/15/2023) Performed for Neoplasm of uncertain behavior of skin Results * XR ANKLE RIGHT 3VW OR MORE (12/06/2023 11:55 AM CDT) Anatomical Region Laterality Modality Lower Extremity Radiographic Deanna ging 12/06/2023 1:18 PM CDT Impressions 12/06/2023 1:26 PM CDT IMPRESSION: Right ankle: Mild arthritis. 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 Report dictated by Miguel Rizvi MD (bank president). I, Robin Merlos MD have personally reviewed and interpreted this examination/study. > Interpreting Provider: Robin Merlos MD on 12/06/2023 1:26 PM Narrative 12/06/2023 1:26 PM CDT PROCEDURE: ??XR ANKLE RIGHT 3VW OR MORE, XR FOOT RIGHT WT BEARING 3VW, DATE/TIME OF EXAM: ??12/06/2023 11:55 AM, LOCATION ??[facility] INDICATION: Z47.89: Orthopedic aftercare ADDITIONAL CLINICAL INFORMATION: Ordering Provider Reason For Exam: ??pain COMPARISON: None. FINDINGS: Right ankle: Acute fracture or dislocation. There is mild tibiotalar and fibulotalar joint space narrowing. There is associated sclerosis of the articular surface of the tibia and talar dome. Bone density and texture are normal. ?? Right foot: There is advanced degenerative change within the mid foot with extensive joint space narrowing, sclerosis, bony deformity, and articular surface irregularity. There are osteophytes and/or ossific fragments. There is subluxation including at the talonavicular joint. ??The joint spaces within the forefoot appear normal. There is diffuse soft tissue swelling of the foot. Procedure Note Robin Merlos MD - 12/06/2023 PROCEDURE: XR ANKLE RIGHT 3VW OR MORE, XR FOOT RIGHT WT BEARING 3VW, DATE/TIME OF EXAM: 12/06/2023 11:55 AM, LOCATION [facility] INDICATION: Z47.89: Orthopedic aftercare ADDITIONAL CLINICAL INFORMATION: Ordering Provider Reason For Exam: pain COMPARISON: None. FINDINGS: Right ankle: Acute fracture or dislocation. There is mild tibiotalar and fibulotalar joint space narrowing. There is associated sclerosis of the articular surface of the tibia and talar dome. Bone density and texture are normal. Right foot: There is advanced degenerative change within the mid foot with extensive joint space narrowing, sclerosis, bony deformity, and articular surface irregularity. There are osteophytes and/or ossific fragments. There is subluxation including at the talonavicular joint. The joint spaceswithin the forefoot appear normal. There is diffuse soft tissue swelling of the foot. IMPRESSION: Right ankle: Mild arthritis. 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 Report dictated by Miguel Rizvi MD (bank president). Robin Kuhn MD have personally reviewed and interpreted this examination/study. > Interpreting Provider: Robin Merlos MD on 12/06/2023 1:26 PM Anne Marie Ackerman MD DIAGNOSTIC IMAGING O RDERABLES * XR FOOT RIGHT WT BEARING 3VW (12/06/2023 11:55 AM CDT) Anatomical Region Laterality Modality Ankle / Foot Radiographic Deanna ging 12/06/2023 1:18 PM CDT Impressions 12/06/2023 1:26 PM CDT IMPRESSION: Right ankle: Mild arthritis. 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 Report dictated by Miguel Rizvi MD (bank president). Robin Kuhn MD have personally reviewed and interpreted this examination/study. > Interpreting Provider: Robin Merlos MD on 12/06/2023 1:26 PM Narrative 12/06/2023 1:26 PM CDT PROCEDURE: ??XR ANKLE RIGHT 3VW OR MORE, XR FOOT RIGHT WT BEARING 3VW, DATE/TIME OF EXAM: ??12/06/2023 11:55 AM, LOCATION ??[facility] INDICATION: Z47.89: Orthopedic aftercare ADDITIONAL CLINICAL INFORMATION: Ordering Provider Reason For Exam: ??pain COMPARISON: None. FINDINGS: Right ankle: Acute fracture or dislocation. There is mild tibiotalar and fibulotalar joint space narrowing. There is associated sclerosis of the articular surface of the tibia and talar dome. Bone density and texture are normal. ?? Right foot: There is advanced degenerative change within the mid foot with extensive joint space narrowing, sclerosis, bony deformity, and articular surface irregularity. There are osteophytes and/or ossific fragments. There is subluxation including at the talonavicular joint. ??The joint spaces within the forefoot appear normal. There is diffuse soft tissue swelling of the foot. Procedure Note Robin Merlos MD - 12/06/2023 PROCEDURE: XR ANKLE RIGHT 3VW OR MORE, XR FOOT RIGHT WT BEARING 3VW, DATE/TIME OF EXAM: 12/06/2023 11:55 AM, LOCATION [facility] INDICATION: Z47.89: Orthopedic aftercare ADDITIONAL CLINICAL INFORMATION: Ordering Provider Reason For Exam: pain COMPARISON: None. FINDINGS: Right ankle: Acute fracture or dislocation. There is mild tibiotalar and fibulotalar joint space narrowing. There is associated sclerosis of the articular surface of the tibia and talar dome. Bone density and texture are normal. Right foot: There is advanced degenerative change within the mid foot with extensive joint space narrowing, sclerosis, bony deformity, and articular surface irregularity. There are osteophytes and/or ossific fragments. There is subluxation including at the talonavicular joint. The joint spaceswithin the forefoot appear normal. There is diffuse soft tissue swelling of the foot. IMPRESSION: Right ankle: Mild arthritis. 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 Report dictated by Miguel Rizvi MD (bank president). I, Robin Merlos MD have personally reviewed and interpreted this examination/study. > Interpreting Provider: Robin Merlos MD on 12/06/2023 1:26 PM Anne Marie Ackerman MD DIAGNOSTIC IMAGING O RDERABLES * DERMATOPATHOLOGY (01/15/2023 12:00 AM CDT) Case Report Dermatopathology Report ? Case: [id number] ? Authorizing Provider: ??Elisa Robert PA-C ? Collected: ? 01/15/2023 12:00 AM ? Ordering Location: ? [facility] Derm[facility] ? Received: ?01/17/2023 02:17 [...] digit: VERRUCA VULGARIS ([id number]) 3 4:05 PM [facility] [facility] Clinical History A: Verruca Vulgaris B-C: Verruca Vulgaris vs. Wart 3 4:05 PM T DERMATOPATHOLOGY LABORATORY Gross Description Specimen A: Received is one formalin filled container labeled with the patient's name and designated left hand, second digit. The specimen consists of two (2) pieces of a shave biopsy measuring 9x7x1, 51n49i8 mm. Jar 0. Specimen B: Received is [...] 8x11x4 mm. Jar 0. 3 4:05 PM CDT DERMATOPATHOLOGY LABORATORY Microscopic Description Specimen A. SKIN, [...] and compact hyperorthokeratosis . 3 4:05 PM CDT DERMATOPATHOLOGY LABORATORY Disclaimer An external and internal positive and negative controls are appropriate for the histochemical, immunohistochemical and immunofluorescence stain(s) in this case (if any), except where stated explicitly. The performance characteristics of the stain(s) cited in this report were developed and its performance characteristic determined by the Dermatopathology Laboratory at [facility], directed by Dr. Jeremiah Hatch. These tests need not be, and therefore are not, approved by the [place] Food and Drug Administration. The tests are used for clinical purposes. Billing Codes Specimen Charges Stain Charges 94889 [id number] 1 1 1 3 4:05 PM CDT DERMATOPATHOLOGY LABORATORY Embedded Images 3 4:05 PM CDT DERMATOPATHOLOGY LABORATORY Pathology/Cytology TISSUE SPECIMEN FROM SKIN / Unknown 01/15/2023 01/17/2023 2:17 PM CDT Miscellaneous samples (specimen) TISSUE SPECIMEN FROM SKIN / Unknown 01/15/2023 01/17/2023 2:17 PM CDT Miscellaneous samples (specimen) TISSUE SPECIMEN FROM SKIN / Unknown 01/15/2023 01/17/2023 2:17 PM CDT Elisa Robert PA-C LAB - PATHOLOGY/CYTO LOGY ORDERABLES DERMATOPATHOLOGY LABORATORY [facility] - Department of Dermatology [facility] [address] [place] [address], [address] [phone] Care Teams Home Restoration Service Cleaner Relationship Specialty Start Date End Date Shubham Duarte DO [address] [place] [id number] PCP - General Family Medicine 12/06/23
--- OUTSIDE RECORDS SUMMARY | 2024-07-25 14:26 | XMS_ITS | Encounter Summary ---
Author Organization [facility] Address [address] [place] [address] Care Team Providers Care Vocational Training Teacher Name Role Phone Unavailable Primary Care Provider Unavailabl e Encounter Details Date Type Department Care Team (Late st Contact Info) Description 03/08/2000 Outpatient Historical [facility] Philip Freedman MD Social History Tobacco Use Types Packs/Day Years Used Date Smoking Tobacco: Never Assessed Sex and Gender Information Value Date Recorded Sex Assigned at Not on file Legal Sex Male 4:35 AM HEALTH PSYCHOLOGIST Gender Identity Not on file Sexual Orientation Not on file documented as of this encounter Plan of Treatment Not on file documented as of this encounter Visit Diagnoses Not on filedocumented in this encounter
--- OUTSIDE RECORDS SUMMARY | 2024-07-25 14:26 | XMS_ITS | Clinical Summary ---
Author Organization [facility] Address [address] [place] [address]. [place] [address] [place] [address] Care Team Providers Care Investment Accountant Name Role Phone Shubham Duarte DO Primary Care Provider [phone] Allergies Active Allergy Reactions Criticality Noted Date Comments Apixaban Itching Low 06/09/2021 Medications furosemide (LASIX) 40 MG tablet Take 1-2 tablets (40-80 mg total) by mouth daily. 80 mg QAM Active spironolactone (ALDACTONE) 25 MG tablet Take 0.5 tablets (12.5 mg total) by mouth daily. 4 Active dilTIAZem CD (CARDIZEM CD) 240 MG 24 hr capsule Take 1 capsule (240 mg total) by mouth 2 (two) times a day. 4 Active nebivolol (BYSTOLIC) 5 MG tablet Take 1 tablet (5 mg total) by mouth 2 (two) times daily with meals. 4 Active losartan (COZAAR) 100 MG tablet Take 1 tablet (100 mg total) by mouth daily. 4 Active pravastatin (PRAVACHOL) 20 MG tablet Take 1 tablet (20 mg total) by mouth nightly at bedtime. Active pregabalin (LYRICA) 150 MG capsule Take 1 capsule (150 mg total) by mouth nightly. 4 Active XARELTO 20 MG Tab tablet Take 1 tablet (20 mg total) by mouth daily with supper. Active arformoterol (BROVANA) 15 MCG/2ML Nebu Soln Take 2 mLs (15 mcg total) by nebulization 2 (two) times a day. Active budesonide (PULMICORT) 0.5 MG/2ML nebulizer solution Take 2 mLs (0.5 mg total) by nebulization 2 (two) times a day. Active semaglutide (OZEMPIC 0.25/0.5 MG/DOSE) 2 MG/1.5ML injection (PEN)Indication s:Diabetes Mellitus Inject 0.25 mg into the skin every 7 days. Indications: Diabetes Takes on Tuesdays. Informed to hold 07/01/24 Active vitamin B-12 (CYANOCOBALAMIN ) 500 MCG tablet Take 1 tablet (500 mcg total) by mouth daily. Active Pyridoxine HCl 250 MG Tab Take 250 mg by mouth daily. Active Active Problems Problem Noted Date Diagnosed Date Encounter for peripherally inserted central cath eter flush 11/02/2023 Diabetic foot infection ([facility]) 2023 Chronic lymphocytic leukemia ([facility]) 1 08/08/2021 Hypertension 11/08/2013 Overview (10/29/2023): HYPERTENSION NOS Pure hypercholesterolemia 11/08/2013 Overview (10/29/2023): PURE HYPERCHOLESTEROLEM Type 2 diabetes mellitus ([facility]) 11/08 Overview (10/29/2023): DMII WO CMP UNCNTRLD Encounters Date Type Department Care Team Description 07/03/2024 8:30 AM ESTHETICIAN/OWNER - 07/03/2024 9:00 AM [facility] Surgery [facility] [address] [place] [address] Lyn Chappell MD CATARACT REMOVAL WITH IOL IMPLANT 07/03/2024 8:27 AM ESTHETICIAN/OWNER Anesthesia Event [facility] [address] [place] [address] Airam Millan CRNA 07/03/2024 7:19 AM ESTHETICIAN/OWNER - 07/03/2024 9:07 AM ESTHETICIAN/OWNER Hospital Encounter [facility] [address] [place] [address] Lyn Chappell MD Discharge Disposition: Home or Self Care (Routine Discharge) 07/03/2024 Travel from Last 3 Months Social History Tobacco Use Types Packs/Day Years Used Date Smoking Tobacco: Never Smokeless Tobacco: Never Tobacco Cessation:Counseling Given: No Alcohol Use Standard Drinks/Week Comments Never 0 (1 standard drink = 0.6 oz pur e alcohol) [facility] Utilities Answer Date Recorded In the past 12 months has e [employer], gas, oil, or water [employer] threatened to shut off services in your home? No 11/01/2023 Humiliation, Afraid, Rape, and Kick questionnair e Answer Date Recorded Within the last year, have y ou been afraid of your partner or ex-partner? No 11/01/2023 Within the last year, have y ou been humiliated or emotionally abused in other ways by your partner or ex-partner? No Within the last year, have y ou been kicked, hit, slapped, or otherwise physically hurt by your partner or ex-partner? No 11/01/2023 Within the last year, have y ou been raped or forced to have any kind of sexual activity by your partner or ex-partner? No 11/01/2023 Overall Financial Resource Strain (CARDIA) Answe r Date Recorded How hard is it for you to pa y for the very basics like food, housing, medical care, and heating? Not hard at all 11/01/2023 PHQ-2 Answer Date Recorded Patient Health Questionnaire-2 Score 0 01/03/2024 Hunger Vital Sign Answer Date Recorded Within the past 12 months, y ou worried that your food would run out before you got the money to buy more. Never true 11/01/19 24 Within the past 12 months, t he food you bought just didn't last and you didn't have money to get more. Never true 11/01/2023 PRAPARE - Transportation Answer Date Re corded In the past 12 months, has l ack of transportation kept you from medical appointments or from getting medications? No 02/2024 In the past 12 months, has l ack of transportation kept you from meetings, work, or from getting things needed for daily living? No 11/01/2023 Housing Stability Vital Sign Answer Agustin e Recorded In the last 12 months, was t here a time when you were not able to pay the mortgage or rent on time? No 11/01/2023 In the past 12 months, how m any times have you moved where you were living? 1 11/01/2023 At any time in the past 12 m [facility], were you homeless or living in a prison (including now)? No 11/01/2023 Sex and Gender Information Value Date Recorded Sex Assigned at Not on file Legal Sex Male 7:25 PM CDT Gender Identity Not on file Sexual Orientation Not on file Last Filed Vital Signs Vital Sign Reading Time Taken Comments Blood Pressure 129/80 07/03/2024 8:55 AM ESTHETICIAN/OWNER Pulse 70 07/03/2024 7:28 AM ESTHETICIAN/OWNER Temperature 36.4 ??C (97.5 ??F) 07/03/2024 7:44 AM CS T Respiratory Rate 20 07/03/2024 7:28 AM ESTHETICIAN/OWNER Oxygen Saturation 95% 07/03/2024 9:00 AM ESTHETICIAN/OWNER Inhaled Oxygen Concentration - - Weight 94.3 kg (208 lb) 07/03/2024 7:28 AM ESTHETICIAN/OWNER Height 177.8 cm (5' 10 ) 07/03/2024 7:28 AM ESTHETICIAN/OWNER Body Mass Index 29.84 07/03/2024 7:28 AM ESTHETICIAN/OWNER Plan of Treatment Health Maintenance Due Date Last Done Comments Kidney Health Evaluation 1945 Diabetes: Retinopathy Eye Exam 1963 Hepatitis C 1963 DTaP, Tdap and Td Vaccines (1 - Tdap) 01/03/1964 Annual Medicare Wellness Visit 2010 Pneumococcal Vaccine: 65+ Years (2 of 2 - PCV) 08/14/2013 08/14/2012 Zoster Vaccines (1 of 2) 03/23/2016 01/27/2016, 11/2014 RSV Immunization or 60+ Years (1 - 1-dose 75+ series) 01/03/2020 COVID-19 Vaccine (4 - season) 2024 05/23/2021, 09/24/2020, 08/27/2020 Influenza Adult (#1) 2024 02/23/2018, 05/01/2017, 01/27/2016, Additional history exists Hemoglobin A1C 05/01/2024 10/30/2023 PHQ-2 (Physician Damon) 06/25/2024 01/03/2024 Lipid Panel 10/29/2024 10/30/2023 Meningococcal B Vaccine Aged Out No l onger eligible based on patient's age to complete this topic Meningococcal Vaccine Aged Out No silke vidhi eligible based on patient's age to complete this topic RSV Immunizations Under 20 Months Aged Out No longer eligible based on patient's age to complete this topic Goals Goal Patient Goal Type Associated Problems Recent Progress Patient-Stated? Author Health - patient able to perform ADLs independently Lifestyle No Ritu Colvin RN Medical Devices Implanted Type Area Heel Compressor Device Identifier Shelf Expiration Date Model / Serial / Lot Ra Lead- 2 Implanted:Qty : 1 on 08/10/2021 by Vazquez Seals MD Lead Implant Right: Atrium [employer] [id number] SOLIA S 45 / [id number] / Rv Lead- 2 Implanted:Qty : 1 on 08/10/2021 by Vazquez Seals MD Lead Implant Right: Ventricle [employer] [id number] SOLIA S 53 / [id number] / Pacemaker-2/1 11/2021 Implanted:Qty : 1 on 08/10/2021 by Vazquez Seals MD Pacemaker Chest [employer] [id number] EDORA 8 MONY / [id number] / Description:MR Conditional u nder following conditions: Static magnetic field of 1.5 T or 3 T, max spatial gradient field of 3000 gauss/cm or less, Max slew rate 200 T/m/s, Max whole body SJ of 2 w/kg or less, Head SJ 3.2 W/kg or less, Max 30 minutes active scan time in 60 minute window [employer]ec[employer] 1-Peice Iol Implanted:Qty : 1 on 07/03/2024 by Lyn Chappell MD at [facility] Left: Eye [employer] [id number] 02/03/2027 / [id number] / Procedures Procedure Name Priority Date/Time Associated Diagnosis Comments REMV CATARACT EXTRACAP,INSERT LENS 07/03/2024 8:20 AM ESTHETICIAN/OWNER cataract left eye POCT GLUCOSE - CÁRDENAS DOCKED DEVICE Routine 07/03/2024 7:49 AM ESTHETICIAN/OWNER LIPID PANEL Routine 10/30/2023 7:35 AM CDT HEMOGLOBIN, GLYCOSYLATED Routine 10/30/2023 7:35 AM CDT from Last 3 Months or Most Recently Relevant to Health Maintenance Results * (ABNORMAL) POCT glucose (07/03/2024 7:49 AM ESTHETICIAN/OWNER) GLUCOSE POC 106(H) 70 - 99 MG/DL 07/03/2024 7:52 AM ESTHETICIAN/OWNER [facility] 07/03/2024 7:49 AM ESTHETICIAN/OWNER us Lyn Chappell MD POCT ORDERABLES - DEVICE Final Result Performing Organization Address City/[facility]/ZIP Co de Phone Number [facility] [address] [place] [address], * (ABNORMAL) HEMOGLOBIN, GLYCATED (10/30/2023 7:35 AM CDT) HGB A1C 6.6(H) <5.7 % 10/30/2023 8:54 AM CDT [facility] Comment: ADA GUIDELINES 2010 5.7 TO 6.4% INCREASED RISK OF DIABETES > OR = 6.5% CONSISTENT WITH DIABETES ESTIMATED AVG GLUCOSE 143 mg/dL 10/30/2023 8:54 AM CDT [facility] 10/30/2023 7:35 AM CDT us Chilo Lopez MD LABORATORY Final Resul t [facility] [address] [place] [address], [place] [phone] * (ABNORMAL) LIPID PANEL (10/30/2023 7:35 AM CDT) CHOLESTEROL 129 <200 MG/DL 10/30/2023 8:[address] [facility] TRIGLYCERIDES 135 <150 MG/DL 10/30/2023 8:[address] [facility] HDL 32(L) >40.0 MG/DL 10/30/2023 8:[address] [facility] LDL (CALCULATED) 70 <100 MG/DL 10/30/19 8:15 AM T [facility] NON HDL CHOLESTEROL 97 <130 MG/DL 10/29 8:[address] [facility] CHOL/HDL RATIO 4.0 0.0 - 4.5 10/30/2023 8:[address] [facility] VLDL CALCULATION 27 5 - 55 MG/DL 10/30/2023 8:[address] [facility] LIPID INTERPRETATION 10/30/2023 8:[address] [facility] Comment: NIH CONCENSUS REPORT RECOMMENDATIONS: ?ADULT ?CHILD ??LOW RISK: ?CHOLESTEROL ? <200 ? <170 ?TRIGLYCERIDE ?<150 ?--- ?HDL ? >=60 ?--- ?LDL ? <100 ? <110 ??BORDERLINE: ?CHOLESTEROL ? 200-239 ?? 170-199 ?TRIGLYCERIDE ?150-199 ? --- ?HDL ?40-59 ?--- ?LDL ? 100-159 ?? 110-129 ??HIGH RISK: ?CHOLESTEROL ? >=240 ?>=200 ?TRIGLYCERIDE ?>=200 ? --- ?HDL ?<40 ?--- ?LDL ? >=160 ?>=130 10/30/2023 7:35 AM CDT us Chilo Lopez MD LABORATORY Final Resul t [facility] [address] [place] [address], from Last 3 Months or Most Recently Relevant to [place] [id number] [facility] Advance Directives * Full Code (Latest Code Status on File) Date Activated Date Inactivated Comments 10/29/2023 10:03 PM 11/03/2023 1:11 PM Care Teams Investment Accountant Relationship Specialty Start Date End Date Shubham Duarte DO [address] [place] [address] PCP - General FAMILY PRACTICE 10/30/23
--- OUTSIDE RECORDS SUMMARY | 2024-07-25 14:26 | XMS_ITS | Referral Summary ---
Author Organization [facility] Address [address] [place] [address] Care Team Providers Care Program Officer Name Role Phone Laloderrick Shubhamfrancisco RAO Primary Care Provider [phone] Source Comments [facility],non-owned Affiliates and Associated Physician Practices is amultiple site organization consisting of ambulatory clinics and hospital sitesin [place], [place], [place] and [place]. This disclosure is being madepursuant to the Care Everywhere program and may not contain all information available regarding this patient. Last updated 18.[facility] Allergies Active Allergy Reactions Criticality Noted Date Comments Apixaban Itching,Other Low 06/09/2021 Social History Tobacco Use Types Packs/Day Years Used Date Smoking Tobacco: Never Assessed Sex and Gender Information Value Date Recorded Sex Assigned at Not on file Gender Identity Not on file Sexual Orientation Not on file Plan of Treatment Not on file Care Teams Program Officer Relationship Specialty Start Date End Date Shubham Duarte DO [address] [place] [address] PCP - General Family Medicine 12/06/23
--- OUTSIDE RECORDS SUMMARY | 2024-07-25 14:26 | XMS_ITS | Encounter Summary ---
Author Organization [facility] Address [address] [place] [address] Care Team Providers Care Supervisor Record Press Name Role Phone Unavailable Primary Care Provider Unavailabl e Encounter Details Date Type Department Care Team (Late st Contact Info) Description 01/06/2000 Outpatient Historical [facility] Philip Freedman MD Social History Tobacco Use Types Packs/Day Years Used Date Smoking Tobacco: Never Assessed Sex and Gender Information Value Date Recorded Sex Assigned at Not on file Legal Sex Male 4:35 AM MANAGER NICU Gender Identity Not on file Sexual Orientation Not on file documented as of this encounter Plan of Treatment Not on file documented as of this encounter Visit Diagnoses Not on filedocumented in this encounter
--- OUTSIDE RECORDS SUMMARY | 2024-07-25 14:26 | XMS_ITS | Clinical Summary ---
Author Organization [facility] [employer] Address [address] [place] [address] Care Team Providers Care Grades 1 Through 5 Teacher Name Role Phone Shubham Duarte DO Primary Care Provider [phone] Source Comments [facility] [employer],non-owned Affiliates and Associated Physician Practices is amultiple site organization consisting of ambulatory clinics and hospital sitesin [place], [place], [place] and [place]. This disclosure is being madepursuant to the Care Everywhere program and may not contain all information available regarding this patient. Last updated 18.[facility] [employer] Allergies Active Allergy Reactions Criticality Noted Date Comments Apixaban Itching,Other Low 06/09/2021 Social History Tobacco Use Types Packs/Day Years Used Date Smoking Tobacco: Never Assessed Sex and Gender Information Value Date Recorded Sex Assigned at Not on file Gender Identity Not on file Sexual Orientation Not on file Plan of Treatment Health Maintenance Due Date Last Done Comments MEDICARE AWV ? 12 MONTHS 1945 DTAP/TDAP/TD VACCINES (1 - Tdap) 01/03/1964 PNEUMOCOCCAL VACCINE 50+ (1 of 1 - PCV) 1995 ZOSTER VACCINE (1 of 2) 1995 Respiratory Syncytial Virus (RSV) Vaccine Pt: or over 60 yrs (1 - 1-dose 75+ series) 01/03/2020 COVID-19 VACCINE (1 - 2023- season) 2024 INFLUENZA VACCINE (#1) 2024 , 02/23/2018, 05/01/2017, Additional history exists DEPRESSION SCREENING 06/25/2024 HEPATITIS B VACCINE Aged Out No longe r eligible based on patient's age to complete this topic HIB VACCINE Aged Out No longer eligi ble based on patient's age to complete this topic HPV VACCINE Aged Out No longer eligi ble based on patient's age to complete this topic MENINGOCOCCAL (Group B) VACCINE Aged Out No longer eligible based on patient's age to complete this topic MENINGOCOCCAL VACCINE Aged Out No silke vidhi eligible based on patient's age to complete this topic Care Teams Grades 1 Through 5 Teacher Relationship Specialty Start Date End Date Shubham Duarte DO [address] [place] [address] PCP - General Family Medicine 12/06/23
--- OUTSIDE RECORDS SUMMARY | 2024-07-25 14:26 | XMS_ITS | Clinical Summary ---
Author Organization [facility] Address [address] [place] [address] Care Team Providers Care Desolderer Name Role Phone Shubham Duarte Primary Care Provider Bala Pride MD Unavailable [phone] Allergies Active Allergy Reactions Criticality Noted Date Comments Apixaban Itching Low 06/09/2021 Medications fluticasone propion-salmetero L (ADVAIR DISKUS) 250-50 mcg/dose diskus inhaler Inhale 1 puff 2 (two) times a day Rinse mouth with water after use. Do not swallow. Active furosemide (LASIX) 40 mg tablet Take 1 tablet (40 mg total) by mouth 2 (two) times a day Active ipratropium-albut Santi (DUO-NEB) 0.5-2.5 mg/3 mL nebulizer solutionIndicatio ns:Chronic Obstructive Pulmonary Disease with Bronchospasms Take 3 mL by nebulization 4 (four) times a day as needed for wheezing Active lisinopriL (PRINIVIL,ZESTRIL ) 40 mg tablet Take 1 tablet (40 mg total) by mouth daily Active metFORMIN (GLUCOPHAGE) 500 mg tablet Take 1 tablet (500 mg total) by mouth 2 (two) times a day with meals Active pravastatin (PRAVACHOL) 20 mg tablet Take 1 tablet (20 mg total) by mouth daily Active pregabalin (LYRICA) 75 mg capsule Take 1 capsule (75 mg total) by mouth 2 (two) times a day as needed Active rivaroxaban (XARELTO) 20 mg tablet Take 1 tablet (20 mg total) by mouth daily with dinner Active umeclidinium (INCRUSE ELLIPTA) 62.5 mcg/actuation blister with device Inhale 1 puff (62.5 mcg total) daily Active dilTIAZem XR (CARDIZEM CD,DILACOR XR) 180 mg 24 hr capsuleIndication s:Ventricular Rate Control in Atrial Fibrillation Take 1 capsule (180 mg total) by mouth daily 30 capsule 1 06/10/20 21 Active spironolactone (ALDACTONE) 25 mg tablet Take 1 tablet (25 mg total) by mouth daily Active losartan (COZAAR) 100 mg tablet Take 1 tablet (100 mg total) by mouth daily Active nebivoloL (BYSTOLIC) 5 mg tablet Take 1 tablet (5 mg total) by mouth daily Active arformoteroL (BROVANA) 15 mcg/2 mL nebulizer solution Inhale 2 mL (15 mcg total) 2 (two) times a day Active budesonide (PULMICORT) 0.5 mg/2 mL nebulizer solution Inhale 2 mL (0.5 mg total) 2 (two) times a day Active ceFAZolin (ANCEF) 1 gram injection 12/10/19 24 Active cyanocobalamin (Vitamin B-12) 500 mcg tabletIndications :Prevention of Vitamin B12 Deficiency Take 1 tablet (500 mcg total) by mouth daily Active pyridoxine (VITAMIN B-6) 250 mg tablet Take 1 tablet (250 mg total) by mouth daily Active Active Problems Problem Noted Date Diagnosed Date CLL (chronic lymphocytic leukemia) 06/07/2022 Pure hypercholesterolemia 11/08/2013 Overview (09/28/2016): PURE HYPERCHOLESTEROLEM Hypertension 11/08/2013 Overview (09/28/2016): HYPERTENSION NOS Type 2 diabetes mellitus 11/08/2013 Overview (09/28/2016): DMII WO CMP UNCNTRLD Immunizations Name Administration Dates Next Due HPV, Unspecified 04/04/2022 Influenza, Split 02/23/2018 Influenza, Trivalent, High D ose, Split, Preservative Free, Intramuscular 05/01/2017 Influenza, Unspecified 01/27/2016,2014,07/29/2014,01/21,12/24/2013,09/10/2013 Pneumococcal Polysaccharide PPV23 08/14/2012 ZOSTER LIVE 01/27/2016,01/28/2015 Surgical History Surgery Date Site/Laterality Comments HERNIA REPAIR Hernia repair CARDIAC ELECTROPHYSIOLOGY STUDY AND ABLATION HERNIA REPAIR CORONARY ANGIOPLASTY COLONOSCOPY Medical History Medical History Date Comments Hyperlipidemia Hyperlipidemia Type 2 diabetes mellitus (HCC) D iabetes type 2 Hypertension Hypertension A-fib (CMS/HCC) (HCC) CAD (coronary artery disease) HTN (hypertension) Hyperlipidemia CONNER (obstructive sleep apnea) Peripheral neuropathy Cataract CLL (chronic lymphocytic leukemia) (HCC) Family History Medical History Relation Name Comments Diabetes type II Other Family hist ory of Diabetes -Type 2; Relation Name Status Comments Other Social History Tobacco Use Types Packs/Day Years Used Date Smoking Tobacco: Former Smokeless Tobacco: Never Comments:quit x 25 years ago Alcohol Use Standard Drinks/Week Comments No 0 (1 standard drink = 0.6 oz pur e alcohol) Sex and Gender Information Value Date Recorded Sex Assigned at Not on file Legal Sex Male 8:18 AM CDT Gender Identity Not on file Sexual Orientation Not on file Obstetrics History Last Filed Vital Signs Vital Sign Reading Time Taken Comments Blood Pressure 123/67 02/19/2024 9:19 AM CDT Pulse 70 02/19/2024 9:19 AM CDT Temperature 36.3 ??C (97.3 ??F) 02/19/2024 9:19 AM CD T Respiratory Rate 20 02/19/2024 9:19 AM CDT Oxygen Saturation 97% 02/19/2024 9:19 AM CDT Inhaled Oxygen Concentration - - Weight 95.5 kg (210 lb 9.6 oz) 02/19/2024 9:19 A M CDT Height 177.8 cm (5' 10 ) 08/28/2022 10:00 AM CLAY ROASTER Body Mass Index 30.22 08/28/2022 10:00 AM CLAY ROASTER Plan of Treatment Health Maintenance Due Date Last Done Comments Albumin Creatinine Ratio, Urine 1945 Depression Screening 1945 Fall Risk Assessment 1945 Hemoglobin A1C 1945 Hepatitis C Screening 1945 Dilated Eye Exam 1945 Foot Exam 1945 DTaP/Tdap/Td Vaccine (1 - Tdap) 01/03/1956 Hepatitis B Screening 1963 Well Visit 65+ 2010 Pneumococcal vaccine 65+ (2 of 2 - PCV) 08/14/2013 08/14/2012 Zoster Vaccine (1 of 2) 03/23/2016 01/27/2016, 01/28 Covid-19 Vaccine (4 2023-2 5 season) 2024 05/23/2021, 09/24/2020, 08/27/2020 Lipid Panel 10/29/2024 10/30/2023 eGFR 02/18/2025 02/19/2024, 07/27, 11/15/2022, Additional history exists Influenza Vaccine Completed 05/04/2024, , 05/01/2017, Additional history exists Procedures Procedure Name Priority Date/Time Associated Diagnosis Comments EGFR Routine 02/19/2024 8:50 AM CDT CLL (chronic lymphocytic leukemia) (HCC) from Last 3 Months or Most Recently Relevant to Health Maintenance Results * eGFR (02/19/2024 8:50 AM CDT) eGFR 67 >=60 mL/min/1. 73 m2 Comment: Interpretive Data Reference Interval Normal ?>/= 90 mL/min/1.73m2 Mildly decreased* ? 60 - 89 mL/min/1.73m2 Mildly to moderately decreased ?45 - 59 mL/min/1.73m2 Moderately to severely decreased ??30 - 44 mL/min/1.73m2 Severely decreased ?15 - 29 mL/min/1.73m2 Kidney Failure ?< 15 ??mL/min/1.73m2 *Relative to young adult level Estimated glomerular filtration rate is determined by the 2020 CKD-EPI equation recommended by the National Kidney Foundation (A Unifying Approach to GFR Estimation: Recommendations of the NKF-ASK Task Force on Reassessing the Inclusion of Race in Diagnosing Kidney Disease, JASN 2020). The CKD-EPI equation should not be used for patients with unstable renal function and has not been validated in children and those over 70. Current interpretive data was last reviewed 2021. Testing performed by: [facility], [address] [facility], [place], [address] Blood 02/19/2024 8:50 AM CDT 02/19/2024 9:40 AM CDT us Grace Jaimes PROGRAM CONSULTANT LAB BLOOD ORDERABLES Final Result [facility] ([place]) [address] [facility] Department [place] [address] from Last 3 Months or Most Recently Relevant to Health Maintenance Insurance MEDICARE [facility] MEDICARE [facility] Care Teams Desolderer Relationship Specialty Start Date End Date Shubham Duarte DO [address] [place] [address] PCP - General Family Medicine 06/09/21 Bala Pride MD [address] [place] [address] Medical Oncologist/Toolroom Checker Hematology and Oncology 11/15/22
--- OUTSIDE RECORDS SUMMARY | 2024-07-25 14:26 | XMS_ITS | Encounter Summary ---
Author Organization [facility] Address [address] [place] [address]. [place], [place] [address] [place] [address] Care Team Providers Care Analysis Analyst Name Role Phone Shubham Duarte DO Primary Care Provider [phone] Encounter Details Date Type Department Care Team (Late st Contact Info) Description 11/02/2023 Therapy Plan [facility] [address] [place], [place] [id number] Ty oRman MD [address] [place] [address] Social History Tobacco Use Types Packs/Day Years Used Date Smoking Tobacco: Never Smokeless Tobacco: Never Alcohol Use Standard Drinks/Week Comments Not Currently 0 (1 standard drink = 0.6 oz pur e alcohol) [facility] Utilities Answer Date Recorded In the past 12 months has [facility] [employer], gas, oil, or water [employer] threatened to shut off services in your [...] and heating? Not hard at all 11/01/2023 Hunger Vital Sign Answer Date Recorded Within [...] any time in the past 12 m [facility], were you homeless or living in a long-term (including now)? No 11/01/2023 Sex and Gender Information Value Date Recorded Sex Assigned at Not on file Legal Sex Male 7:25 PM CDT Gender Identity Not on file Sexual Orientation Not on file documented as of this encounter Functional Status * Are you deaf or do you have serious difficulty hearing Answer Date of Assessment Author Status No 10/30/2023 12:26 AM CDT Lloyd Wilson RN Active * Are you blind or do you have serious difficulty seeing, even when wearing glasses? Answer Date of Assessment Author Status No 10/30/2023 12:26 AM TANYAT Lloyd Wilson RN Active * Do you have serious difficulty walking or climbing stairs? Answer Date of Assessment Author Status No 10/30/2023 12:26 AM TANYAT Lloyd Wilson RN Active * Do you have difficulty dressing or bathing? Answer Date of Assessment Author Status No 10/30/2023 12:26 AM Lloyd Gay RN Active * Because of a physical, mental, or emotional condition, do you have difficulty doing errands alone such as visiting a doctor's office or shopping? Answer Date of Assessment Author Status No 10/30/2023 12:26 AM Lloyd Gay RN Active documented as of this encounter Mental Status * Because of a physical, mental, or emotional condition, do you have serious difficulty concentrating, remembering, or making decisions? Answer Entry Date Author Status No 10/30/2023 12:26 AM Lloyd Gay RN Active documented in this encounter Plan of Treatment Not on file documented as of this encounter Goals Goal Patient Goal Type Associated Problems Recent Progress Patient-Stated? 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
--- OUTSIDE RECORDS SUMMARY | 2024-07-25 14:26 | XMS_ITS | Referral Summary ---
Author Organization [facility] Address [address] [place] [address] Care Team Providers Care Waste Duster Name Role Phone LaloShubham meza Guidry Primary Care Provider Bala Pride MD Unavailable [phone] Allergies Active Allergy Reactions Criticality Noted [...] Pneumococcal Polysaccharide PPV23 08/14/2012 ZOSTER LIVE 01/27/2016,01/28/2015 Social History Tobacco Use Types Packs/Day Years [...] cm (5' 10 ) 08/28/2022 10:00 AM ENERGY CONSERVATION TECHNICIAN Body Mass Index 30.22 08/28/2022 10:00 AM ENERGY CONSERVATION TECHNICIAN Plan of Treatment Not on file Procedures Procedure Name Priority Date/Time Associated Diagnosis [...] was last reviewed 2021. Testing performed by: [facility], [address] [facility], [place], [address] Blood 02/19/2024 8:50 AM CDT 02/19/2024 9:40 AM CDT us Grace aJimes DISH CLOTH INSPECTOR LAB BLOOD ORDERABLES Final Result [facility] ([place]) [facility] Department [place] [address] from Last 3 Months or Most Recently Relevant to Health Maintenance Insurance [facility] [address] [address] MEDICARE [facility] MEDICARE [facility] Care Teams Waste Duster Relationship Specialty Start Date End Date Shubham Duarte DO [address] [place] [address] PCP - General Family Medicine 06/09/21 Bala Pride MD [address] [place] [address] Medical Oncologist/Hydrogen Plant Operations Manager Hematology and Oncology 11/15/22
--- OUTSIDE RECORDS SUMMARY | 2024-07-25 14:26 | XMS_ITS | Clinical Summary ---
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
--- OUTSIDE RECORDS SUMMARY | 2024-07-25 14:26 | XMS_ITS | Encounter Summary ---
Author Organization [facility] Address 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
[2024-07-25 15:13] LABS: Basophils Absolute Auto 0.04 K/mm3 (0.00-0.10); Basophils Percent Auto 0.2 % (0.0-1.0); Eosinophils Absolute Auto 0.11 K/mm3 (0.02-0.50); Eosinophils Percent Auto 0.6 % (1.0-6.0); Hematocrit 44.9 % (37.0-46.0); Hemoglobin 14.2 g/dL (12.4-15.3); Immature Granulocyte Absolute 0.07 K/mm3 (0.00-0.00); Immature Granulocyte Percent A 0.4 % (0.0-0.0); Lymphocytes Absolute Auto 9.79 K/mm3 (1.10-4.50); Lymphocytes Percent Auto 54.8 % (18.0-42.0); Mean Corpuscular HGB Conc 31.6 g/dL (32-36); Mean Corpuscular Volume 88.6 fL (78.0-102.0); Mean Platelet Volume 10.8 fl (8.7-11.0); Monocytes Absolute Auto 0.74 K/mm3 (0.10-0.90); Monocytes Percent Auto 4.1 % (2.0-11.0); Neutrophils Absolute Auto 7.13 K/mm3 (1.70-7.20); Neutrophils Percent Auto 39.9 % (50.0-70.0); Platelet Count Result 178 K/mm3 (150-420); Red Blood Count 5.07 M/mm3 (4.70-6.10); Red Cell Distribution Width 14.7 % (11.6-14.4); White Blood Count 17.9 K/mm3 (4.8-10.8)
[2024-07-25 15:47] LABS: Alanine Aminotransferase 61 U/L (16-63); Albumin Level 3.7 g/dL (3.4-5.0); Alkaline Phosphatase 74 U/L (46-116); Anion Gap 9 mmol/L (4-12); Bilirubin,Total 0.3 mg/dL (0.00-1.00); Blood Urea Nitrogen 26 mg/dL (7-18); Calcium 8.8 mg/dL (8.5-10.1); Carbon Dioxide 26 mmol/L (21-32); Chloride 102 mmol/L (98-108); Estimated Glomerular Filt Rate 58; Glucose 104 mg/dL (70-99); Magnesium 1.9 mg/dL (1.8-2.4); Osmolality Calculated 288 mOsm/kg (285-295); Potassium 3.7 mmol/L (3.5-5.1); Sodium 137 mmol/L (136-145); Thyroid Stimulating Hormone 2.34 uIU/mL (0.36-3.74); Total Protein 6.6 g/dL (6.4-8.2)
[2024-07-25 16:21] LABS: Aspartate Amino Transferase 29 U/L (15-37)
== END 2024-07-25 14:18 | disposition home or self-care (01) ==
PROVIDERS: PCP Nurse Practitioner Family; Visit Provider Nurse Practitioner Family
DX: M79.606 Pain in leg, unspecified (principal); I48.91 Unspecified atrial fibrillation; I25.10 Atherosclerotic heart disease of native coronary artery without angina pectoris; I10 Essential (primary) hypertension
CPT/HCPCS: 36415; 80053; 83735; 84443; 85025

== ENCOUNTER 2024-07-31 13:25 | Outpatient (CLI) | payer MEDICARE, SELFPAY ==
--- NOTE | ~2024-07-31 | US_ITS ---
EXAMINATION: US arterial ankle brachial ind DATE: 07/31/2024 13:53 INDICATION: Peripheral vascular disease, unspecified. TECHNIQUE: Segmental pressures and plethysmographic and Doppler waveforms of the brachial and lower e xtremity arteries were obtained. COMPARISON: None. FINDINGS: Right and left brachial artery pressures of 133 mm Hg and 122 mm Hg, respectively, are concordant (no rmal difference <= 30 mmHg). The right ankle-brachial index (LIZBETH) is 1.14 (normal >= 0.9-1.0). The right great toe-brachial index (TBI) is 0.98 (normal >= 0.65). Arterial Doppler waveforms are biphasic at the ankle. The left LIZBETH is 1.15. The left TBI is 0.89. Arterial Doppler waveforms are biphasic at the ankle. IMPRESSION: 1. No significant arterial occlusive disease. Reviewed, dictated and finalized at location A. [facility] BLOCK SETTER
--- OUTSIDE RECORDS SUMMARY | 2024-07-31 13:35 | XMS_ITS | Clinical Summary ---
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
--- OUTSIDE RECORDS SUMMARY | 2024-07-31 13:35 | XMS_ITS | Encounter Summary ---
Author Organization [facility] Address 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
--- OUTSIDE RECORDS SUMMARY | 2024-07-31 13:35 | XMS_ITS | Referral Summary ---
Author Organization [facility] Address [address] [place] [address] Care Team Providers Care Piano Mechanic Name Role Phone LaloShubham meza Guidry Primary Care Provider Bala Pride MD Unavailable [phone] Allergies Active Allergy Reactions Criticality Noted Date [...] 70 02/19/2024 9:19 AM CDT Temperature 36.3 C (97.3 F) 02/19/2024 9:19 AM CDT Respiratory Rate 20 02/19/2024 9:19 AM CDT Oxygen Saturation 97% 02/19/2024 9:19 AM CDT Inhaled Oxygen Concentration - - Weight 95.5 kg (210 lb 9.6 oz) 02/19/2024 9:19 A M CDT Height 177.8 cm (5' 10 ) 08/28/2022 10:00 AM TOPPIECE CHOPPER Body Mass Index 30.22 08/28/2022 10:00 AM TOPPIECE CHOPPER Plan of Treatment Not on file Procedures Procedure Name Priority Date/Time Associated Diagnosis Comments EGFR Routine 02/19/2024 8:50 AM CDT CLL (chronic lymphocytic leukemia) ([facility]) from Last 3 Months or Most Recently Relevant to Health Maintenance Results * eGFR (02/19/2024 8:50 AM CDT) eGFR 67 >=60 mL/min/1. 73 m2 Comment: Interpretive Data Reference Interval Normal >/= 90 mL/min/1.73m2 Mildly decreased* 60 - 89 mL/min/1.73m2 Mildly to moderately decreased 45 - 59 mL/min/1.73m2 Moderately to severely decreased 30 - 44 mL/min/1.73m2 Severely decreased 15 - 29 mL/min/1.73m2 Kidney Failure < 15 mL/min/1.73m2 *Relative to young adult level Estimated glomerular [...] was last reviewed 2021. Testing performed by: [facility], [place], [address] Blood 02/19/2024 8:50 AM CDT 02/19/2024 9:40 AM CDT us Grace Jaimes SPEECH THERAPIST LAB BLOOD ORDERABLES Final Result [facility] ([place]) [address] [place] [address] Department [place] [address] from Last 3 Months or Most Recently Relevant to Health Maintenance Insurance MEDICARE [facility] MEDICARE [facility] Care Teams Piano Mechanic Relationship Specialty Start Date End Date Shubham Duarte DO [address] [place] [address] PCP - General Family Medicine 06/09/21 Bala Pride MD [address] [place] [address] Medical Oncologist/Manager Art Hematology and Oncology 11/15/22
--- OUTSIDE RECORDS SUMMARY | 2024-07-31 13:35 | XMS_ITS | Referral Summary ---
Author Organization [facility] [employer] Address [address] [place] [address] Care Team Providers Care Sharepoint Net Developer Name Role Phone Laloderrick Shubhamfrancisco RAO Primary Care Provider [phone] Source Comments [facility] [employer],non-owned Affiliates and Associated Physician Practices is amultiple site organization consisting of ambulatory clinics and hospital sitesin [place], [place], [place] and [place]. This disclosure is being madepursuant to the Care Everywhere program and may not contain all information available regarding this patient. Last updated 18.[facility] [employer] Allergies Active Allergy Reactions Criticality Noted Date Comments Apixaban Itching,Other Low 06/09/2021 Social History Tobacco Use Types Packs/Day Years Used Date Smoking Tobacco: Never Assessed Sex and Gender Information Value Date Recorded Sex Assigned at Not on file Gender Identity Not on file Sexual Orientation Not on file Plan of Treatment Not on file Care Teams Sharepoint Net Developer Relationship Specialty Start Date End Date Shubham Duarte DO [address] [place] [address] PCP - General Family Medicine 12/06/23
--- OUTSIDE RECORDS SUMMARY | 2024-07-31 13:35 | XMS_ITS | Encounter Summary ---
Author Organization [facility] Care Team Providers Care Concrete Batcher Name Role Phone Shubham Duarte DO Primary Care Provider Bala Pride MD Unavailable [phone] Bala Pride MD Unavailable [phone] Encounter Details Date Type Department Care Team (Latest Contact Info) Description 06/28/2016 Orders Only [facility] ProviderJeremiah MD [address] [place] [address] Social History Tobacco Use Types [...] PROCEDURE - RESULT 06/28/2016 12 :00 AM WELDER GUN documented in this encounter Results * PROCEDURE - RESULT (06/28/2016 12:00 AM WELDER GUN) Narrative 06/28/2016 12:00 AM WELDER GUN Ordered by an unspecified provider. Historical Provider Final Res ult documented in this encounter Visit Diagnoses Not on filedocumented in this encounter Care Teams Concrete Batcher Relationship Specialty Start Date End Date Shubham Duarte DO [address] [place] [address] PCP - General Family Medicine 06/09/21 Bala Pride MD [address] [place] [address] Medical Oncologist/Payroll Consultant Hematology and Oncology 07/04/22 11/14/22 Bala Pride MD [address] [place] [address] Medical Oncologist/Payroll Consultant Hematology and Oncology 11/15/22 documented as of this encounter
--- OUTSIDE RECORDS SUMMARY | 2024-07-31 13:35 | XMS_ITS | Encounter Summary ---
Author Organization [facility] Address 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
--- OUTSIDE RECORDS SUMMARY | 2024-07-31 13:35 | XMS_ITS | Patient Health Summary ---
Author Organization [facility] Address [address] [place] [address] Care Team Providers Care Continuing Education Specialist Name Role Phone LaloShubham meza Primary Care Provider [phone] Note from [facility],non-owned Affiliates and Associated Physician Practices is amultiple site organization consisting of ambulatory clinics and hospital sitesin [place], [place], [place] and [place]. This disclosure is being madepursuant to the Care Everywhere program and may not contain all information available regarding this patient. Last updated 18.[facility] [employer] Allergies * Apixaban(Itching,Other) -Low Criticality Social History [...] arthropathy. Report dictated by Miguel Rizvi MD (professor of radiology). I, Robin Merlos MD have personally reviewed and interpreted this examination/study. > Interpreting Provider: Robin Merlos MD on 12/06/2023 1:26 PM Narrative 12/06/2023 1:26 PM CDT PROCEDURE: XR ANKLE RIGHT 3VW OR MORE, XR FOOT RIGHT WT BEARING 3VW, DATE/TIME OF EXAM: 12/06/2023 11:55 AM, LOCATION [facility] INDICATION: Z47.89: Orthopedic aftercare ADDITIONAL CLINICAL [...] including at the talonavicular joint. The joint spaces within the forefoot appear normal. There is diffuse soft tissue swelling of the foot. Procedure Note Robin Merlos MD - 12/06/2023 PROCEDURE: XR ANKLE RIGHT 3VW OR MORE, XR FOOT RIGHT WT BEARING 3VW, DATE/TIME OF EXAM: 12/06/2023 11:55 AM, LOCATION [facility] INDICATION: Z47.89: Orthopedic aftercare ADDITIONAL CLINICAL [...] arthropathy. Report dictated by Miguel Rizvi MD (professor of radiology). Robin Kuhn MD have personally reviewed and [...] sequela of neuropathic arthropathy. Report dictated by Mgiuel Rizvi MD (professor of radiology). Robin Kuhn MD have personally reviewed and interpreted this examination/study. > Interpreting Provider: Robin Merlos MD on 12/06/2023 1:26 PM Narrative 12/06/2023 1:26 PM CDT PROCEDURE: XR ANKLE RIGHT 3VW OR MORE, XR FOOT RIGHT WT BEARING 3VW, DATE/TIME OF EXAM: 12/06/2023 11:55 AM, LOCATION [facility] INDICATION: Z47.89: Orthopedic aftercare ADDITIONAL CLINICAL [...] including at the talonavicular joint. The joint spaces within the forefoot appear normal. There is diffuse soft tissue swelling of the foot. Procedure Note Robin Merlos MD - 12/06/2023 PROCEDURE: XR ANKLE RIGHT 3VW OR MORE, XR FOOT RIGHT WT BEARING 3VW, DATE/TIME OF EXAM: 12/06/2023 11:55 AM, LOCATION [facility] INDICATION: Z47.89: Orthopedic aftercare ADDITIONAL CLINICAL [...] arthropathy. Report dictated by Miguel Rizvi MD (professor of radiology). I, Robin Merlos MD have personally reviewed and interpreted this examination/study. > Interpreting Provider: Robin Merlos MD on 12/06/2023 1:26 PM Anne Marie Ackerman MD DIAGNOSTIC IMAGING O RDERABLES * DERMATOPATHOLOGY (01/15/2023 12:00 AM CDT) Case Report Dermatopathology Report Case: [id number] Authorizing Provider: Elisa Robert PA-C Collected: 01/15/2023 12:00 AM Ordering Location: [facility] DermPath Lab Received: 01/17/2023 02:17 PM Pathologist: Marychuy Laboy MD Specimens: A) - Skin, left hand, second digit B) - Skin, left hand, bottom of 5th digit C) - Skin, left hand, top of 5th digit 3 4:05 PM CDT DERMATOPATHOLOGY LABORATORY Final Diagnosis Specimen A. SKIN, left hand, second digit: VERRUCA VULGARIS (B07.8) Specimen B. SKIN, left hand, bottom of 5th digit: VERRUCA VULGARIS, SUPERFICIAL PORTIONS OF (B07.8) Specimen C. SKIN, left hand, top of 5th digit: VERRUCA VULGARIS (B07.8) 3 4:05 PM CDT DERMATOPATHOLOGY LABORATORY Clinical History A: Verruca Vulgaris B-C: Verruca Vulgaris vs. Wart 3 4:05 PM [facility] DERMATOPATHOLOGY LABORATORY Gross Description Specimen A: Received is one formalin filled container labeled with the patient's name and designated left hand, second digit. The specimen consists of two (2) pieces of a shave biopsy measuring 9x7x1, 77d17b4 mm. Jar 0. Specimen B: Received is [...] 8x11x4 mm. Jar 0. 3 4:05 PM [facility] DERMATOPATHOLOGY LABORATORY Microscopic Description Specimen A. SKIN, [...] and compact hyperorthokeratosis . 3 4:05 PM [facility] DERMATOPATHOLOGY LABORATORY Disclaimer An external and internal positive and negative controls are appropriate for the histochemical, immunohistochemical and immunofluorescence stain(s) in this case (if any), except where stated explicitly. The performance characteristics of the stain(s) cited in this report were developed and its performance characteristic determined by the Dermatopathology Laboratory at [facility], directed by Dr. Jeremiah Hatch. These tests need not be, and therefore are not, approved by the [place] Food and Drug Administration. The tests are used for clinical purposes. Billing Codes Specimen Charges Stain Charges 48085 48574 19154 1 1 1 3 4:05 PM [facility] DERMATOPATHOLOGY LABORATORY Embedded Images 3 4:05 PM CDT DERMATOPATHOLOGY LABORATORY Pathology/Cytology TISSUE SPECIMEN FROM SKIN / Unknown 01/15/2023 01/17/2023 2:17 PM CDT Miscellaneous samples (specimen) TISSUE SPECIMEN FROM SKIN / Unknown 01/15/2023 01/17/2023 2:17 PM CDT Miscellaneous samples (specimen) TISSUE SPECIMEN FROM SKIN / Unknown 01/15/2023 01/17/2023 2:17 PM CDT Elisa Robert PA-C LAB - PATHOLOGY/CYTO LOGY ORDERABLES DERMATOPATHOLOGY LABORATORY [facility] - Department of Dermatology [facility] [address] [place] [address] Care Teams Continuing Education Specialist Relationship Specialty Start Date End Date Shubham Duarte DO [address] [place] [address] PCP - General Family Medicine 12/06/23
--- OUTSIDE RECORDS SUMMARY | 2024-07-31 13:35 | XMS_ITS | Encounter Summary ---
Author Organization [facility] Address 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
--- OUTSIDE RECORDS SUMMARY | 2024-07-31 13:35 | XMS_ITS | Clinical Summary ---
Author Organization [facility] Address [address] [place] [address] Care Team Providers Care Snowboarder Name Role Phone Shubham Duarte Primary Care Provider Bala Pride MD Unavailable [phone] Allergies Active Allergy Reactions Criticality Noted [...] cm (5' 10 ) 08/28/2022 10:00 AM MILL TURNER Body Mass Index 30.22 08/28/2022 10:00 AM MILL TURNER Plan of Treatment Health Maintenance Due Date [...] 2) 03/23/2016 01/27/2016, 01/28 Covid-19 Vaccine (4 - 2023-2 5 season) 2024 05/23/2021, 09/24/2020, 08/27/2020 [...] was last reviewed 2021. Testing performed by: [facility], [place], [address] Blood 02/19/2024 8:50 AM CDT 02/19/2024 9:40 AM CDT Grace Jaimes FIRST DYER LAB BLOOD ORDERABLES Final Result [facility] Department [place] [address] from Last 3 Months or Most Recently Relevant to Health Maintenance Insurance MEDICARE [facility] MEDICARE [facility] Care Teams Snowboarder Relationship Specialty Start Date End Date Shubham Duarte DO [address] [place] [address] PCP - General Family Medicine 06/09/21 Bala Pride MD [address] [place] [address] Medical Oncologist/Performing Arts Technicians Hematology and Oncology 11/15/22
--- OUTSIDE RECORDS SUMMARY | 2024-07-31 13:35 | XMS_ITS | Clinical Summary ---
Author Organization [facility] Address [address] [place] [address] Care Team Providers Care White Kid Buffer Name Role Phone Shubham Duarte DO Primary Care Provider [phone] Source Comments [facility],non-owned Affiliates and Associated Physician Practices is amultiple site organization consisting of ambulatory clinics and hospital sitesin [place], [place], [place] and [place]. This disclosure is being madepursuant to the Care Everywhere program and may not contain all information available regarding this patient. Last updated 18.[facility] Allergies Active Allergy Reactions Criticality Noted Date Comments Apixaban Itching,Other Low 06/09/2021 Social History Tobacco Use Types Packs/Day Years Used Date Smoking Tobacco: Never Assessed Sex and Gender Information Value Date Recorded Sex Assigned at Not on file Gender Identity Not on file Sexual Orientation Not on file Plan of Treatment Health Maintenance Due Date Last Done Comments MEDICARE AWV 12 MONTHS 1945 DTAP/TDAP/TD VACCINES (1 - Tdap) 01/03/1964 PNEUMOCOCCAL VACCINE 50+ (1 of 1 - PCV) 1995 ZOSTER VACCINE (1 of 2) 1995 Respiratory Syncytial Virus (RSV) Vaccine Pt: or over 60 yrs (1 - 1-dose 75+ series) 01/03/2020 COVID-19 VACCINE (1 - 2023- season) 2024 INFLUENZA VACCINE (#1) 2024 0, 02/23/2018, 05/01/2017, Additional history exists DEPRESSION SCREENING [...] age to complete this topic Care Teams White Kid Buffer Relationship Specialty Start Date End Date Shubham Duarte DO [address] [place] [address] PCP - General Family Medicine 12/06/23
--- OUTSIDE RECORDS SUMMARY | 2024-07-31 13:35 | XMS_ITS | Encounter Summary ---
Author Organization [facility] Address [address] [place] [address] Care Team Providers Care Rn Pool Name Role Phone Shubham Duarte DO Primary Care Provider [phone] Encounter Details Date Type Department Care Team (Late st Contact Info) Description 01/16/2023 Lab Requisition [facility] - DermPath Lab [address] [place] [id number] Elisa Robert PA-C [address] [place] [address] Neoplasm of uncertain behavior of [...] AM CDT) Case Report Dermatopathology Report Case: [id number] Authorizing Provider: Elisa Robert PA-C Collected: 01/15/2023 12:00 AM Ordering Location: [facility] DermPath Lab Received: 01/17/2023 02:17 PM Pathologist: Marychuy Laboy MD Specimens: A) - Skin, left hand, second digit B) - Skin, left hand, bottom of 5th digit C) - Skin, left hand, top of 5th digit 4:05 PM [facility] DERMATOPATHOLOGY LABORATORY Final Diagnosis Specimen A. SKIN, left hand, second digit: VERRUCA VULGARIS (B07.8) Specimen B. SKIN, left hand, bottom of 5th digit: VERRUCA VULGARIS, SUPERFICIAL PORTIONS OF (B07.8) Specimen C. SKIN, left hand, top of 5th digit: VERRUCA VULGARIS (B07.8) 3 4:05 PM [facility] DERMATOPATHOLOGY LABORATORY Clinical History A: Verruca Vulgaris B-C: Verruca Vulgaris vs. Wart 4:05 PM [facility] DERMATOPATHOLOGY LABORATORY Gross Description Specimen A: Received is one formalin filled container labeled with the patient's name and designated left hand, second digit. The specimen consists of two (2) pieces of a shave biopsy measuring 9x7x1, 97v25j7 mm. Jar 0. Specimen B: Received is [...] shave biopsy measuring 8x11x4 mm. Jar 0. 4:05 PM [facility] DERMATOPATHOLOGY LABORATORY Microscopic Description Specimen A. SKIN, [...] and compact hyperorthokeratosis . 3 4:05 PM [facility] DERMATOPATHOLOGY LABORATORY Disclaimer An external and internal positive and negative controls are appropriate for the histochemical, immunohistochemical and immunofluorescence stain(s) in this case (if any), except where stated explicitly. The performance characteristics of the stain(s) cited in this report were developed and its performance characteristic determined by the Dermatopathology Laboratory at [facility], directed by Dr. Jeremiah Hatch. These tests need not be, and therefore are not, approved by the [place] Food and Drug Administration. The tests are used for clinical purposes. Billing Codes Specimen Charges Stain Charges 37982 31169 60818 1 1 1 3 4:05 PM CDT [...] LAB - PATHOLOGY/CYTO LOGY ORDERABLES DERMATOPATHOLOGY LABORATORY [facility] - Department of Dermatology [facility] [address] [place] [address] documented in this encounter Visit Diagnoses Diagnosis Neoplasm of uncertain behavior of skin documented in this encounter Care Teams Rn Pool Relationship Specialty Start Date End Date Shubham Duarte DO [address] [place] [address] PCP - General Family Medicine 12/06/23 documented as of this encounter
== END 2024-07-31 13:26 | disposition home or self-care (01) ==
LOC: CHSIMG 13:25
PROVIDERS: PCP Nurse Practitioner Family; Visit Provider Nurse Practitioner Family
DX: I73.9 Peripheral vascular disease, unspecified (principal)
CPT/HCPCS: 93922

== ENCOUNTER 2024-12-22 11:17 | Outpatient (CLI) | payer MEDICARE, SELFPAY ==
--- NOTE | ~2024-12-22 | XR_ITS ---
XR shoulder RT min 2V Ordering provider: Juan Pablo Ronquillo APRN History: . Fall X 2 days, minor swelling/bruising, radiates to elbow . Comparison: None. FINDINGS: BONES: No acute fracture or dislocation. JOINT SPACES: The acromioclavicular joint shows mild osteoarthritic changes. The glenohumeral joint i s normal. SOFT TISSUES: Normal. IMPRESSION: No acute osseous abnormality right shoulder. Reviewed, dictated and finalized at location A.
== END 2024-12-22 11:18 | disposition home or self-care (01) ==
LOC: CHSIMG 11:19
PROVIDERS: PCP Nurse Practitioner Family; Visit Provider Nurse Practitioner Family
DX: M25.511 Pain in right shoulder (principal)
CPT/HCPCS: 73030

== ENCOUNTER 2025-01-07 09:52 | Outpatient (CLI) | payer MEDICARE, SELFPAY ==
--- NOTE | ~2025-01-07 | CT_ITS ---
Non-contrast CT scan of the Abdomen and Pelvis Clinical indication: Abdominal pain Technique: 2.5 mm axial scans were obtained through the abdomen and pelvis without intravenous or or al contrast. Dose reduction technique was used on this scan by utilizing automated exposure control a nd iterative reconstruction technique. The dose-length product (DLP) was 1002.11 mGy-cm. COMPARISON: 08/19/2020 Findings: Images through the lung bases reveal no abnormalities. There is no evidence of renal or ureteral calculi. The kidneys and the ureters are nondilated. The liver, spleen, pancreas, gallbladder, and left adrenal gland appear normal. Stable right adrenal nodules. There is no aortic aneurysm. There is no evidence of bowel obstruction. Images through the pelvis were performed. There is no evidence of ascites or lymphadenopathy. Urinary bladder unremarkable. No pelvic mass seen. Prostate gland mildly enlarged. Impression: No acute abnormality. Stable left adrenal nodules. Stability since 2020 is compatible with benignity. Reviewed, dictated and finalized at [facility]. Impression: No acute abnormality. Stable left adrenal nodules. Stability since 2020 is compatible with benignity.
--- OUTSIDE RECORDS SUMMARY | 2025-01-07 10:02 | XMS_ITS | Encounter Summary ---
Author Organization [facility] Care Team Providers Care In Home Sales Representative Name Role Phone Shubham Duarte DO Primary Care Provider Bala Pride MD Unavailable [phone] Bala Pride MD Unavailable [phone] Encounter Details Date Type Department Care Team (Latest Contact Info) Description 06/28/2016 Orders Only [facility] CLINCONV ProviderJeremiah MD [address] [place] [address] Social History Tobacco Use Types [...] PROCEDURE - RESULT 06/28/2016 12 :00 AM URBAN ANTHROPOLOGIST documented in this encounter Results * PROCEDURE - RESULT (06/28/2016 12:00 AM URBAN ANTHROPOLOGIST) Narrative 06/28/2016 12:00 AM URBAN ANTHROPOLOGIST Ordered by an unspecified provider. Historical Provider Final Res ult documented in this encounter Visit Diagnoses Not on filedocumented in this encounter Care Teams In Home Sales Representative Relationship Specialty Start Date End Date Shubham Duarte DO [address] [place] [address] PCP - General Family Medicine 06/09/21 Bala Pride MD [address] [place] [address] Medical Oncologist/Tax Representative Hematology and Oncology 07/04/22 11/14/22 Bala Pride MD [address] [place] [address] Medical Oncologist/Tax Representative Hematology and Oncology 11/15/22 documented as of this encounter
--- OUTSIDE RECORDS SUMMARY | 2025-01-07 10:02 | XMS_ITS | Encounter Summary ---
Author Organization [facility] Address [address] [place] [address] Care Team Providers Care Financial Services Specialist Name Role Phone Shubham Duarte DO Primary Care Provider [phone] Encounter Details Date Type Department Care Team (Late st Contact Info) Description 01/16/2023 Lab Requisition [facility] - DermPath Lab [address] [place] [id number] Elisa Robert PA-C [address] [place] [address] Neoplasm of uncertain behavior of skin Social History Tobacco Use Types Packs/Day Years Used Date Smoking Tobacco: Never Assessed Sex and Gender Information Value Date Recorded Sex Assigned at Not on file Legal Sex Male 10:17 AM CDT Gender Identity Not on file [...] AM CDT) Case Report Dermatopathology Report Case: [id number] Authorizing Provider: Elisa Robert PA-C Collected: 01/15/2023 12:00 AM Ordering Location: [facility] DermPath Lab Received: 01/17/2023 02:17 PM Pathologist: Marychuy Laboy MD Specimens: A) - Skin, left hand, second digit B) - Skin, left hand, bottom of 5th digit C) - Skin, left hand, top of 5th digit 4:05 PM [facility] DERMATOPATHOLOGY LABORATORY Final Diagnosis Specimen A. SKIN, left hand, second digit: VERRUCA VULGARIS (B07.8) Specimen B. SKIN, left hand, bottom of 5th digit: VERRUCA VULGARIS, SUPERFICIAL PORTIONS OF (B07.8) Specimen C. SKIN, left hand, top of 5th digit: VERRUCA VULGARIS (B07.8) 4:05 PM [facility] DERMATOPATHOLOGY LABORATORY at 1605 CDT Clinical History A: Verruca Vulgaris B-C: Verruca Vulgaris vs. Wart 4:05 PM [facility] DERMATOPATHOLOGY LABORATORY Gross Description Specimen A: Received is one formalin filled container labeled with the patient's name and designated left hand, second digit. The specimen consists of two (2) pieces of a shave biopsy measuring 9x7x1, 25t78d9 mm. Jar 0. Specimen B: Received is [...] 8x11x4 mm. Jar 0. 3 4:05 PM [facility] DERMATOPATHOLOGY LABORATORY Microscopic Description Specimen A. SKIN, [...] and compact hyperorthokeratosis . 3 4:05 PM [facility] DERMATOPATHOLOGY LABORATORY Disclaimer An external and internal positive and negative controls are appropriate for the histochemical, immunohistochemical and immunofluorescence stain(s) in this case (if any), except where stated explicitly. The performance characteristics of the stain(s) cited in this report were developed and its performance characteristic determined by the Dermatopathology Laboratory at [facility], directed by Dr. Jeremiah Hatch. These tests need not be, and therefore are not, approved by the [place] Food and Drug Administration. The tests are used for clinical purposes. Billing Codes Specimen Charges Stain Charges 68714 52548 70815 1 1 1 3 4:05 PM CDT DERMATOPATHOLOGY LABORATORY Embedded Images 3 4:05 PM CDT DERMATOPATHOLOGY LABORATORY Pathology/Cytology TISSUE SPECIMEN FROM SKIN / Unknown 01/15/2023 01/17/2023 2:17 PM CDT Miscellaneous samples (specimen) TISSUE SPECIMEN FROM SKIN / Unknown 01/15/2023 01/17/2023 2:17 PM CDT Miscellaneous samples (specimen) TISSUE SPECIMEN FROM SKIN / Unknown 01/15/2023 01/17/2023 2:17 PM CDT Elisa Robert PA-C LAB - PATHOLOGY/CYTOLOGY ILIANAE ASHLEY Final Result DERMATOPATHOLOGY LABORATORY [facility] - Department of Dermatology Specialized Medicine [address] [place] [address], [address] [phone] documented in this encounter Visit Diagnoses Diagnosis Neoplasm of uncertain behavior of skin documented in this encounter Care Teams Financial Services Specialist Relationship Specialty Start Date End Date Shubham Duarte DO [address] [place] [address] PCP - General Family Medicine 12/06/23 documented as of this encounter
--- OUTSIDE RECORDS SUMMARY | 2025-01-07 10:02 | XMS_ITS | Referral Summary ---
Author Organization [facility] Address [address] [place] [address] Care Team Providers Care Serology Technician Name Role Phone Shubham Duarte Guidry Primary Care Provider Bala Pride MD Unavailable [phone] Allergies Active Allergy Reactions Criticality Noted Date [...] Overview (09/28/2016): DMII WO CMP UNCNTRLD Immunizations Immunization Administration Dates Next Due HPV, Unspecified 04/04/2022 Influenza, Split 02/23/2018 Influenza, Trivalent, High D ose, Split, Preservative Free, Intramuscular 05/01/2017 Influenza, Unspecified 05/04/2024,2015,01/28/2015,07/29,01/21/2014,12/24/2013,09/10/2013 Pneumococcal Polysaccharide PPV23 08/14/2012 ZOSTER LIVE 01/27/2016,01/28/2015 [...] Sign Reading Time Taken Comments Blood Pressure 134/69 08/15/2024 12:58 PM ACID PLANT HELPER Pulse 78 08/15/2024 12:58 PM ACID PLANT HELPER Temperature 36.3 C (97.3 F) 08/15/2024 12:58 PM ACID PLANT HELPER Respiratory Rate 20 08/15/2024 12:5 8 PM ACID PLANT HELPER Oxygen Saturation 96% 08/15/2024 12: 58 PM ACID PLANT HELPER Inhaled Oxygen Concentration - - Weight 94.3 kg (207 lb 12.8 oz) 025 12:58 PM ACID PLANT HELPER Height 177.8 cm (5' 10) 08/28/2022 10: 00 AM ACID PLANT HELPER Body Mass Index 29.82 08/28/2022 10:00 AM ACID PLANT HELPER Plan of Treatment Not on file Procedures Procedure Name Priority Date/Time Associated Diagnosis Comments EGFR Routine 08/15/2024 12:20 PM ACID PLANT HELPER CLL (chronic lymphocytic leukemia) (HCC) from Last 3 Months or Most Recently Relevant to Health Maintenance Results * (ABNORMAL) eGFR (08/15/2024 12:20 PM ACID PLANT HELPER) eGFR 51(L) >=60 mL/min/1. 73 m2 Comment: Interpretive Data [...] was last reviewed 2021. Testing performed by: [facility], [place], [address] Blood 08/15/2024 12:2 0 PM ACID PLANT HELPER 08/15/2024 1:16 PM ACID PLANT HELPER us Grace Jaimes CRIME SPECIALIST LAB BLOOD ORDERABLES Final Result [facility] [address] [place] [address] Department [place] [address] from Last 3 Months or Most Recently Relevant to Health Maintenance Insurance MEDICARE [facility] MEDICARE SUPPLEMENT MEDICARE [facility] MEDICARE SUPPLEMENT Care Teams Serology Technician Relationship Specialty Start Date End Date Shubham Duarte DO [address] [place] [address] PCP - General Family Medicine 06/09/21 Bala Pride MD [address] [place] [address] Medical Oncologist/Director Machine Hematology and Oncology 11/15/22
--- OUTSIDE RECORDS SUMMARY | 2025-01-07 10:02 | XMS_ITS | Clinical Summary ---
Author Organization [facility] Address [address] [place] [address] Care Team Providers Care Psychological Assistant Name Role Phone Shubham Duarte Primary Care Provider Bala Pride MD Unavailable [phone] Allergies Active Allergy Reactions Criticality Noted Date [...] D iabetes type 2 Hypertension Hypertension A-fib (HCC) CAD (coronary artery disease) HTN (hypertension) [...] Comments Blood Pressure 134/69 08/15/2024 12:58 PM TELESERVICES REPRESENTATIVE Pulse 78 08/15/2024 12:58 PM TELESERVICES REPRESENTATIVE Temperature 36.3 C (97.3 F) 08/15/2024 12:58 PM TELESERVICES REPRESENTATIVE Respiratory Rate 20 08/15/2024 12:5 8 PM TELESERVICES REPRESENTATIVE Oxygen Saturation 96% 08/15/2024 12: 58 PM TELESERVICES REPRESENTATIVE Inhaled Oxygen Concentration - - Weight 94.3 kg (207 lb 12.8 oz) 025 12:58 PM TELESERVICES REPRESENTATIVE Height 177.8 cm (5' 10) 08/28/2022 10: 00 AM TELESERVICES REPRESENTATIVE Body Mass Index 29.82 08/28/2022 10:00 AM TELESERVICES REPRESENTATIVE Plan of Treatment Health Maintenance Due Date Last Done Comments Albumin Creatinine Ratio, Urine 1945 Depression Screening 1945 Fall Risk Assessment 1945 Hemoglobin A1C 1945 Dilated Eye Exam 1945 Foot Exam 1945 DTaP/Tdap/Td Vaccine (1 - Tdap) 01/03/1956 Hepatitis B Screening 1963 Well Visit 65+ 2010 Pneumococcal vaccine 65+ (2 of 2 - PCV) 08/14/2013 08/14/2012 Zoster Vaccine (1 of 2) 03/23/2016 01/27/2016, 01/28 Covid-19 Vaccine (4 - 2023-2 5 season) 2024 05/23/2021, 09/24/2020, 08/27/2020 Lipid Panel 10/29/2024 10/30/2023 Influenza Vaccine (#1) 2025 , 02/23/2018, 05/01/2017, Additional history exists eGFR 08/15/2025 08/15/2024, 01/24, 08/20/2023, Additional history exists Procedures Procedure Name Priority Date/Time Associated Diagnosis Comments EGFR Routine 08/15/2024 12:20 PM TELESERVICES REPRESENTATIVE CLL (chronic lymphocytic leukemia) (HCC) from Last 3 Months or Most Recently Relevant to Health Maintenance Results * (ABNORMAL) eGFR (08/15/2024 12:20 PM TELESERVICES REPRESENTATIVE) eGFR 51(L) >=60 mL/min/1. 73 m2 Comment: [...] was last reviewed 2021. Testing performed by: [facility], [place], [address] Blood 08/15/2024 12:2 0 PM TELESERVICES REPRESENTATIVE 08/15/2024 1:16 PM TELESERVICES REPRESENTATIVE Grace Jaimes BUSINESS SYSTEMS TECHNICIAN LAB BLOOD ORDERABLES Final Result [facility] ([facility] Department [place] [address] from Last 3 Months or Most Recently Relevant to Health Maintenance Insurance MEDICARE [facility] MEDICARE SUPPLEMENT MEDICARE [employer] MEDICARE SUPPLEMENT Care Teams Psychological Assistant Relationship Specialty Start Date End Date Shubham Duarte DO [address] [place] [address] PCP - General Family Medicine 06/09/21 Bala Pride [place] [address] Medical Oncologist/[employer] [facility] Hematology and Oncology 11/15/22
--- OUTSIDE RECORDS SUMMARY | 2025-01-07 10:02 | XMS_ITS | Clinical Summary ---
Author Organization [facility] [employer] Address [address] [place] [address] Care Team Providers Care Business Taxes Specialist Name Role Phone Shubham Duarte DO Primary Care Provider [phone] Source Comments [facility] [employer],non-owned Affiliates and Associated Physician Practices is amultiple site organization consisting of ambulatory clinics and hospital sitesin [place] and [place]. This disclosure is being madepursuant to the Care Everywhere program and may not contain all information available regarding this patient. Last updated 18.[facility] [employer] Allergies Active Allergy Reactions Criticality Noted Date [...] COVID-19 VACCINE (1 - 2023- season) 2024 DEPRESSION SCREENING 06/25/2024 INFLUENZA VACCINE (#1) 2025 , 02/23/2018, 05/01/2017, Additional history exists HEPATITIS B VACCINE Aged Out No longe r eligible based on patient's age to complete this topic HIB VACCINE Aged Out No longer eligi ble based on patient's age to complete this topic HPV VACCINE Aged Out No longer eligi ble based on patient's age to complete this topic MENINGOCOCCAL (Group B) VACCINE SHARED DECISION-MAKING Aged Out No longer eligible based on patient's age to complete this topic MENINGOCOCCAL GROUPS A/C/Y/W VACCINE Aged Out No longer eligible based on patient's age to complete this topic Insurance MEDICARE [facility] MEDICARE [place] Care Teams Business Taxes Specialist Relationship Specialty Start Date End Date Shubham Duarte DO [address] [place] [id number] PCP - General Family Medicine 12/06/23
--- OUTSIDE RECORDS SUMMARY | 2025-01-07 10:02 | XMS_ITS | Patient Health Record ---
Author Organization [facility] Address [address] [place], [place] [address] Care Team Providers Care Licensed Guide Name Role Phone BYRON VIVI Unavailable [phone] Shubham Duarte Unavailable Unavailable Allergies No Known Allergies Reason For Referral No Information Medications Medication SIG (Take, Route, Frequency, Duration) Notes Start Date End Date Status Medrol Dosepak ORAL Medrol DosepakOr iginal MedicationMedrol Dosepak *Reorder from Ayla for eRx and Interaction Alerts* 05/21/2019 Active Immunizations Vaccine Route Administration Date Status Comme nts Influenza, high dose seasonal Unknown 05/24/2023 Admini stered Vital Signs Height-cm 177.80 cm 10/13/2024 Weight-kg 97.07 kg 10/13/2024 Height 70.00 in 10/13/2024 Weight 214 lbs 10/13/2024 BMI 30.7 kg/m2 10/13/2024 Encounters Encounter Location Date Provider Diagnosis [facility] [address] [place], [place] [id number] 03/31/2024 VIVI SNOOK Tinea unguium B35.1 ; Pain in right foot M79.671 ; Pain in left foot M79.672 ; Atherosclerosis of [place] arteries of extremities with intermittent claudication, bilateral legs I70.213 and Acquired keratosis [keratoderma] palmaris et plantaris L85.1 [facility] [address] [place], [place] [id number] 07/14/2024 VIVI SNOOK Tinea unguium B35.1 ; Pain in right foot M79.671 ; Pain in left foot M79.672 ; Atherosclerosis of [place] arteries of extremities with intermittent claudication, bilateral legs I70.213 and Acquired keratosis [keratoderma] palmaris et plantaris L85.1 [facility] [address] [place], [place] [id number] 10/13/2024 VIVIJOVANNY MATTHEWS Tinea unguium B35.1 ; Pain in right foot M79.671 ; Pain in left foot M79.672 ; Atherosclerosis of [place] arteries of extremities with intermittent claudication, bilateral legs I70.213 and Acquired keratosis [keratoderma] palmaris et plantaris L85.[address] [facility] [address] [facility] [address] [place], [place] [id number] 05/28/2024 VIVI FIOREDERICK Assessments Encounter Date Diagnosis (ICD Code) Assessment Notes Treatment Notes Treatment Clinical Notes Section Notes 03/31/2024 Tinea unguium (ICD-10 - B35.1) Nails 1-5 Bilateral were debrided extensively with nail nippers and emery board, reducing length and girth to pink healthy tissue with any subungual debris and necrotic tissue removed 03/31/2024 Pain in right foot (ICD-10 - M79.671) 07/14/2024 Tinea unguium (ICD-10 - B35.1) Nails 1-5 Bilateral were debrided extensively with nail nippers and emery board, reducing length and girth to pink healthy tissue with any subungual debris and necrotic tissue removed 07/14/2024 Pain in right foot (ICD-10 - M79.671) 10/13/2024 Tinea unguium (ICD-10 - B35.1) Nails 1-5 Bilateral were debrided extensively with nail nippers and emery board, reducing length and girth to pink healthy tissue with any subungual debris and necrotic tissue removed 10/13/2024 Pain in right foot (ICD-10 - M79.671) 10/13/2024 Pain in left foot (ICD-10 - M79.672) 07/14/2024 Pain in left foot (ICD-10 - M79.672) 03/31/2024 Pain in left foot (ICD-10 - M79.672) 03/31/2024 Atherosclerosis of [place] arteries of extremities with intermittent claudication, bilateral legs (ICD-10 - I70.213) 07/14/2024 Atherosclerosis of [place] arteries of extremities with intermittent claudication, bilateral legs (ICD-10 - I70.213) 10/13/2024 Atherosclerosis of [place] arteries of extremities with intermittent claudication, bilateral legs (ICD-10 - I70.213) 10/13/2024 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.1) A total of 1 corns or calluses, as described in the note above, were cut and pared utilizing a #15 blade 07/14/2024 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.1) A total of 1 corns or calluses, as described in the note above, were cut and pared utilizing a #15 blade 03/31/2024 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.1) A total of 1 corns or calluses, as described in the note above, were cut and pared utilizing a #15 blade Plan Of Treatment Next Appt Details Provider Name:VIVI BYRON, 08:30:00 AM, [address], [place], [place], [id number], Insurance Providers Payer Name Payer Address Payer Phone Subscriber Number Group Number Insured Name Patient Relationship to Insured Coverage Start Date Coverage End Date Medicare Part B [place] [address] [facility] [place] [address] [id number] DIEGOCHELSEA Self - patient is the insured [facility] ([facility]) ATTN CLAIMS [address] [facility] [place] [address] [id number] FAVDORETHA, CHELSEA Self - patient is the insured [facility] [address] [place], [place] [id number] FAVRE, CHELSEA Self - patient is the insured
== END 2025-01-07 09:53 | disposition home or self-care (01) ==
LOC: CHSIMG 09:52
PROVIDERS: PCP Nurse Practitioner Family; Visit Provider Nurse Practitioner Family
DX: R10.32 Left lower quadrant pain (principal); Z98.890 Other specified postprocedural states; Z87.19 Personal history of other diseases of the digestive system; E27.9 Disorder of adrenal gland, unspecified
CPT/HCPCS: 74176